=== PATIENT | male | born 2000 | race Caucasian/White ===

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

== ENCOUNTER 2020-12-30 09:28 | Inpatient (IN) ==
[2020-12-30] MEDS ORDERED: dexAMETHasone**PF** 10 MG/ML VIAL IV ONE (09:49)
[2020-12-30] MEDS ORDERED: ACETAMINOPHEN 1,000 MG/100 ML VIAL IV STA (09:49)
[2020-12-30] MEDS ORDERED: Heparin IV Adult Wt-Based Standard *NO* Bolus Protocol ONE (10:04)
--- NOTE | 2020-12-30 10:04 | Emergency Department Note ---
Impression & Plan COVID-19, Acute respiratory failure with hypoxia ED Provider Note NAME: BHANU FLORENCE AGE: 20 SEX: M : 2000 ARRIVES VIA: Walk-In INFORMANT: Patient, ED PROVIDER(S): Jet Rdz MD ROS: See above HPI for pertinent positives & negatives. A total of 10 systems reviewed and were otherwise negative. CHIEF COMPLAINT: HPI: This a 19-year-old male who presents emergency department complaining of shortness of breath. The patient reports he began having symptoms on December 18. He was subsequently diagnosed with a sinus infection and started on amoxicillin. When he did not improve he later got a Covid test. He has not been taking anything for the shortness of breath. He has not been placed on steroids the patient reports any exertion makes him short of breath. He reports rest makes this somewhat better. ROS: See above HPI for pertinent positives & negatives. A total of 10 systems reviewed and were otherwise negative. PAST MEDICAL HISTORY: See Below PAST SURGICAL HISTORY: See Below FAMILY HISTORY: See Below SOCIAL HISTORY: See Below HOME MEDICATIONS: See Below ALLERGIES: See Below VITALS: See Below PHYSICAL EXAMINATION: VITAL SIGNS - Vital signs and nursing notes were reviewed. GENERAL - 20-year-old male appearing stated age who is in moderate distress. short of breath while answering questions SKIN - Without rashes. HEAD - NC/AT. EYES - PERRL with EOMI bilaterally. Sclera anicteric. Palpebral conjunctiva pink and moist with no injection noted. EARS - No deformities of external structures noted on gross examination bilaterally. NOSE - Midline and without cyanosis. No epistaxis or purulent drainage noted. Septum midline without deviation or septal hematoma noted. MOUTH/OROPHARYNX - Without perioral cyanosis. Buccal mucosa pink and moist and without leukoplakia. Tongue midline with equal elevation of palate bilaterally. No tonsillar hypertrophy, erythema, or exudates noted. NECK - Neck with FROM. Supple to palpation. LUNGS - Chest wall symmetric without accessory muscle use, intercostals retractions, or central cyanosis. Normal vesicular breath sounds CTA B/L. No wheezes, rales, or rhonchi appreciated. CARDIAC - RRR with S1/S2. No murmur, rubs, or gallops appreciated. ABDOMEN - Abdominal contour without pulsations or visible masses. BS normoactive all four quadrants. No tenderness, palpable masses, hepatosplen omegaly, or ascites noted. EXTREMITIES - No clubbing or peripheral cyanosis. No pretibial edema present. +3/5 radial, posterior tibial, and dorsalis pedis pulses palpated throughout. +5/5 strength noted in UE/LE bilaterally. NEUROLOGIC - Cranial nerves II through XII grossly intact. Sensory intact to light touch throughout. Patellar reflexes +2/4. PSYCH - A&Ox3 and cooperates fully with examiner. Pt is very pleasant and interacts well with examiner. MEDICAL DECISION MAKING: Patient was seen and evaluated as above in room B7. Review was performed of nursing notes and vital signs. I did review pertinent previous visits and patient history. After obtaining a thorough history and physical examination the above work up was performed. This is a 20-year-old male who was diagnosed with Covid who presents to the emergency department strongly short of breath. The patient was placed on BiPAP here in the emergency department started on IV Decadron. He was given IV acetaminophen. He was typed and screened he does not have an elevation in his white blood cell count. He was started on a heparin drip until the CAT scan of his chest came back. I did discuss his case with the hospitalist service who did agree to meet the patient. An order was placed for continuous cardiac monitoring. The monitor shows a rate of 117 with Normal SInus rhythm. I attest that I have personally reviewed the patient medication list. I attest that I have reviewed the patient's blood pressure and it was found to be [] GCS: 15 The patient was evaluated during a period of high volume and high acuity during the global COVID-19 pandemic, and that diagnosis was suspected/considered upon their initial presentation. Their evaluation, treatment and testing was consistent with current guidelines for patients who present with complaints or symptoms that may be related to COVID-19. Patient was seen while provider was wearing PPE. Triage Nursing notes reviewed. Prior medical records reviewed Vital Signs: reviewed and remarkable for no significant abnormalities Differential diagnosis: Reactive airway disease, pneumonia, pneumothorax, COPD, CHF, infections, cardiac ischemia, pulmonary embolism, musculoskeletal, gastrointestinal, as well as other pathologies. ER treatment provided: See below Diagnostics interpreted by me: ECG: EKG shows sinus tachycardia QTC is 443 ventricular rate is [address] elevation or depression there is no previous EKG to compare to Laboratory studies: As stated above and show below. Imaging studies: See below Consultation(s): Internal Medicine Critical Care: I have personally spent greater than 30 minutes of critical care time in the direct management of this patient. This includes bedside care, interpretation of diagnostic studies, and testing, discussion with consultants, patient, and family members, and other required patient management activities. This 30 minutes is in excess of all separately billable procedures. Past Med/Surg History Social History Smoking Status: Never smoker Second Hand Exposure: No; Do You Dip or Chew Tobacco: No; Tobacco Cessation Education Requested by Patient: No Hx Alcohol Use: No Hx Substance Use: No Preferred Language: Croatian Communication Ability: Effective Securities Counselor Required: No Beliefs That Will Affect Care: None Current Living Situation: Parent and Family Other Information That Helps Us Care for You: No Feels Safe at Home: Yes Safety Concerns: Feels Safe At This Time Assistive Devices: Oxygen - Continuous Allergies Allergies Allergy/AdvReac Type Severity Reaction Status Date / Time No Known Allergies Allergy Mild Unverified 12/30/20 10:14 Home Meds Home Medications Medication Instructions Recorded Confirmed ephedrine sulfate 25 mg tablet 25 mg PO UD 12/30/20 12/30/20 (Bronkaid Max) pseudoephedrine HCl 60 mg tablet 60 mg PO Q6H PRN 12/30/20 12/30/20 Results & Data (ED) Vital Signs Vital Signs - 24 hr 12/30/20 09:32 Pulse Rate 117 H Respiratory Rate 28 H Blood Pressure 130/82 Blood Pressure Mean 98 Pulse Oximetry 81 L Oxygen Delivery Method Room Air Sepsis Recent Fever Within 48 Hours Yes Sepsis New/Unexplained Change in Mental Status No Sepsis Action Taken by Nursing Physician Notified Home Medications Current Medication List: was personally reviewed by me Laboratory Data Attestation: I reviewed the patient's lab results. Result diagrams: 12/31/20 05:57 12/31/20 05:57 Lab Results 12/30/20 12/30/20 12/30/20 Range/Units 10:03 10:03 10:03 WBC 12.52 H (4.8-10.8) K/uL RBC 4.98 (4.7-6.1) M/uL Hgb 14.7 (14.0-18.0) g/dL Hct 42.6 (42-52) % MCV 85.5 (80-100) fL MCH 29.5 (25-34) pg MCHC 34.5 (32-36) g/dL RDW Std Deviation 42.1 (36.4-46.3) fL RDW Coeff of Jia 13.3 (11.5-14.5) % Plt Count 271 (130-400) K/uL MPV 10.1 (7.4-10.4) fL Immature Gran % (Auto) 0.5 % Neut % (Auto) 87.3 % Lymph % (Auto) 6.9 % [place] % (Auto) 5.2 % Eos % (Auto) 0.0 % Baso % (Auto) 0.1 % Neut # (Auto) 10.94 H (1.4-6.5) K/uL Lymph # (Auto) 0.86 L (1.2-3.4) K/uL [place] # (Auto) 0.65 H (0.11-0.59) K/uL Eos # (Auto) 0.00 (0-0.5) K/uL Baso # (Auto) 0.01 (0-0.2) K/uL Immature Gran # (Auto) 0.06 H (0.00-0.02) K/uL ESR 79 H (0-15) mm/hr PT (9.0-12.0) Seconds INR (0.9-1.1) APTT (21.0-31.0) Seconds PTT Ratio D-Dimer (0-500) ug/L FEU Sodium (136-145) mmol/L Potassium (3.5-5.1) mmol/L Chloride (98-107) mmol/L Carbon Dioxide (21-32) mmol/L Anion Gap (3-11) BUN (7-18) mg/dl Creatinine (0.6-1.4) mg/dl Est Cr Clr Drug Dosing ml/min Est GFR ( Amer) ml/min Est GFR (Non-Af Amer) ml/min BUN/Creatinine Ratio (10-20) Glucose (70-99) mg/dl Lactate (0.4-2.0) mmol/L Calcium (8.5-10.1) mg/dl Magnesium (1.8-2.4) mg/dl Ferritin (8-388) ng/ml Total Bilirubin (0.2-1) mg/dl AST (15-37) U/L ALT (12-78) U/L Alkaline Phosphatase (45-117) U/L Lactate Dehydrogenase (87-241) U/L Total Creatine Kinase (39-308) U/L CK-MB (CK-2) (0.5-3.6) ng/ml CK/CKMB % Calc Troponin I (0-0.045) ng/ml C-Reactive Protein (0-0.29) mg/dl Total Protein (6.4-8.2) gm/dl Albumin (3.4-5.0) gm/dl Globulin (2.5-4.0) gm/dl Albumin/Globulin Ratio (0.9-2) Procalcitonin (0-0.5) ng/ml COVID-19 Eval Order SARS-CoV-2 (PCR) (Negative) Blood Type O Positive Antibody Screen NEGATIVE 12/30/20 12/30/20 12/30/20 Range/Units 10:03 10:03 10:03 WBC (4.8-10.8) K/uL RBC (4.7-6.1) M/uL Hgb (14.0-18.0) g/dL Hct (42-52) % MCV (80-100) fL MCH (25-34) pg MCHC (32-36) g/dL RDW Std Deviation (36.4-46.3) fL RDW Coeff of Jia (11.5-14.5) % Plt Count (130-400) K/uL MPV (7.4-10.4) fL Immature Gran % (Auto) % Neut % (Auto) % Lymph % (Auto) % [place] % (Auto) % Eos % (Auto) % Baso % (Auto) % Neut # (Auto) (1.4-6.5) K/uL Lymph # (Auto) (1.2-3.4) K/uL [place] # (Auto) (0.11-0.59) K/uL Eos # (Auto) (0-0.5) K/uL Baso # (Auto) (0-0.2) K/uL Immature Gran # (Auto) (0.00-0.02) K/uL ESR (0-15) mm/hr PT 11.7 (9.0-12.0) Seconds INR 1.2 H (0.9-1.1) APTT 24.4 (21.0-31.0) Seconds PTT Ratio 0.9 D-Dimer 1630 H* (0-500) ug/L FEU Sodium 135 L (136-145) mmol/L Potassium 3.8 (3.5-5.1) mmol/L Chloride 97 L (98-107) mmol/L Carbon Dioxide 29 (21-32) mmol/L Anion Gap 9.0 (3-11) BUN 10 (7-18) mg/dl Creatinine 0.94 (0.6-1.4) mg/dl Est Cr Clr Drug Dosing 169.5 ml/min Est GFR ( Amer) 132.9 ml/min Est GFR (Non-Af Amer) 114.6 ml/min BUN/Creatinine Ratio 10.6 (10-20) Glucose 113 H (70-99) mg/dl Lactate 1.5 (0.4-2.0) mmol/L Calcium 8.9 (8.5-10.1) mg/dl Magnesium 2.9 H (1.8-2.4) mg/dl Ferritin 2141.5 H (8-388) ng/ml Total Bilirubin 2.7 H (0.2-1) mg/dl AST 244 H (15-37) U/L ALT 390 H (12-78) U/L Alkaline Phosphatase 92 (45-117) U/L Lactate Dehydrogenase (87-241) U/L Total Creatine Kinase (39-308) U/L CK-MB (CK-2) (0.5-3.6) ng/ml CK/CKMB % Calc Troponin I (0-0.045) ng/ml C-Reactive Protein 14.10 H (0-0.29) mg/dl Total Protein 8.3 H (6.4-8.2) gm/dl Albumin 3.2 L (3.4-5.0) gm/dl Globulin 5.1 H (2.5-4.0) gm/dl Albumin/Globulin Ratio 0.6 L (0.9-2) Procalcitonin (0-0.5) ng/ml COVID-19 Eval Order SARS-CoV-2 (PCR) (Negative) Blood Type Antibody Screen 12/30/20 12/30/20 12/30/20 Range/Units 10:03 10:03 10:09 WBC (4.8-10.8) K/uL RBC (4.7-6.1) M/uL Hgb (14.0-18.0) g/dL Hct (42-52) % MCV (80-100) fL MCH (25-34) pg MCHC (32-36) g/dL RDW Std Deviation (36.4-46.3) fL RDW Coeff of Jia (11.5-14.5) % Plt Count (130-400) K/uL MPV (7.4-10.4) fL Immature Gran % (Auto) % Neut % (Auto) % Lymph % (Auto) % [place] % (Auto) % Eos % (Auto) % Baso % (Auto) % Neut # (Auto) (1.4-6.5) K/uL Lymph # (Auto) (1.2-3.4) K/uL [place] # (Auto) (0.11-0.59) K/uL Eos # (Auto) (0-0.5) K/uL Baso # (Auto) (0-0.2) K/uL Immature Gran # (Auto) (0.00-0.02) K/uL ESR (0-15) mm/hr PT (9.0-12.0) Seconds INR (0.9-1.1) APTT (21.0-31.0) Seconds PTT Ratio D-Dimer (0-500) ug/L FEU Sodium (136-145) mmol/L Potassium (3.5-5.1) mmol/L Chloride (98-107) mmol/L Carbon Dioxide (21-32) mmol/L Anion Gap (3-11) BUN (7-18) mg/dl Creatinine (0.6-1.4) mg/dl Est Cr Clr Drug Dosing ml/min Est GFR ( Amer) ml/min Est GFR (Non-Af Amer) ml/min BUN/Creatinine Ratio (10-20) Glucose (70-99) mg/dl Lactate (0.4-2.0) mmol/L Calcium (8.5-10.1) mg/dl Magnesium (1.8-2.4) mg/dl Ferritin (8-388) ng/ml Total Bilirubin (0.2-1) mg/dl AST (15-37) U/L ALT (12-78) U/L Alkaline Phosphatase (45-117) U/L Lactate Dehydrogenase 745 H (87-241) U/L Total Creatine Kinase 1373 H (39-308) U/L CK-MB (CK-2) < 1.0 (0.5-3.6) ng/ml CK/CKMB % Calc TNP Troponin I < 0.015 (0-0.045) ng/ml C-Reactive Protein (0-0.29) mg/dl Total Protein (6.4-8.2) gm/dl Albumin (3.4-5.0) gm/dl Globulin (2.5-4.0) gm/dl Albumin/Globulin Ratio (0.9-2) Procalcitonin 0.81 H (0-0.5) ng/ml COVID-19 Eval Order SARS-CoV-2 (PCR) (Negative) Blood Type Antibody Screen 12/30/20 12/30/20 Range/Units 11:00 11:00 WBC (4.8-10.8) K/uL RBC (4.7-6.1) M/uL Hgb (14.0-18.0) g/dL Hct (42-52) % MCV (80-100) fL MCH (25-34) pg MCHC (32-36) g/dL RDW Std Deviation (36.4-46.3) fL RDW Coeff of Jia (11.5-14.5) % Plt Count (130-400) K/uL MPV (7.4-10.4) fL Immature Gran % (Auto) % Neut % (Auto) % Lymph % (Auto) % [place] % (Auto) % Eos % (Auto) % Baso % (Auto) % Neut # (Auto) (1.4-6.5) K/uL Lymph # (Auto) (1.2-3.4) K/uL [place] # (Auto) (0.11-0.59) K/uL Eos # (Auto) (0-0.5) K/uL Baso # (Auto) (0-0.2) K/uL Immature Gran # (Auto) (0.00-0.02) K/uL ESR (0-15) mm/hr PT (9.0-12.0) Seconds INR (0.9-1.1) APTT (21.0-31.0) Seconds PTT Ratio D-Dimer (0-500) ug/L FEU Sodium (136-145) mmol/L Potassium (3.5-5.1) mmol/L Chloride (98-107) mmol/L Carbon Dioxide (21-32) mmol/L Anion Gap (3-11) BUN (7-18) mg/dl Creatinine (0.6-1.4) mg/dl Est Cr Clr Drug Dosing ml/min Est GFR ( Amer) ml/min Est GFR (Non-Af Amer) ml/min BUN/Creatinine Ratio (10-20) Glucose (70-99) mg/dl Lactate (0.4-2.0) mmol/L Calcium (8.5-10.1) mg/dl Magnesium (1.8-2.4) mg/dl Ferritin (8-388) ng/ml Total Bilirubin (0.2-1) mg/dl AST (15-37) U/L ALT (12-78) U/L Alkaline Phosphatase (45-117) U/L Lactate Dehydrogenase (87-241) U/L Total Creatine Kinase (39-308) U/L CK-MB (CK-2) (0.5-3.6) ng/ml CK/CKMB % Calc Troponin I (0-0.045) ng/ml C-Reactive Protein (0-0.29) mg/dl Total Protein (6.4-8.2) gm/dl Albumin (3.4-5.0) gm/dl Globulin (2.5-4.0) gm/dl Albumin/Globulin Ratio (0.9-2) Procalcitonin (0-0.5) ng/ml COVID-19 Eval Order Covid19 at [facility] SARS-CoV-2 (PCR) POSITIVE A* (Negative) Blood Type Antibody Screen Administered Medications Albuterol (Albuterol Hfa 8 Gm Inhaler) 2 puffs INH Q6R [facility] Stop: 01/29/21 18:59 Last Admin: 12/31/20 13:03 Dose: 2 puffs Documented by: [id number] Admin: 12/31/20 07:45 Dose: 2 puffs Documented by: [id number] Admin: 12/31/20 00:00 Dose: 2 puffs Documented by: [id number] Admin: 12/30/20 20:05 Dose: 2 puffs Documented by: [id number] Enoxaparin Sodium (Enoxaparin Inj 60 Mg/0.6 Ml Syr) 60 mg SQ BID ALEKSANDRA; Protocol Stop: 01/29/21 20:59 Last Admin: 12/31/20 08:47 Dose: 60 mg Documented by: [id number] Admin: 12/30/20 20:39 Dose: 60 mg Documented by: [id number] Guaifenesin (Guaifenesin 600 Mg Tabcr) 1,200 mg PO Q12 ALEKSANDRA Stop: 01/29/21 20:59 Last Admin: 12/31/20 08:50 Dose: 1,200 mg Documented by: [id number] Admin: 12/30/20 20:40 Dose: 1,200 mg Documented by: [id number] Dexamethasone 6 mg/ Syringe 1.5 mls @ 1 mls/min IV DAILY ALEKSANDRA Stop: 01/10/21 08:59 Last Admin: 12/31/20 08:47 Dose: 1 mls/min Documented by: [id number] Discontinued Medications Dexamethasone Sodium Phosphate (DexamethasonePf 10 Mg/Ml Vial) 6 mg IV NOW ONE Stop: 12/30/20 09:50 Last Admin: 12/30/20 10:24 Dose: 6 mg Documented by: [id number] Heparin Sodium/Dextrose (Heparin Iv Adult Wt-Based Standard *No* Bolus Protocol) 1 ea N/A ONE ONE; Protocol Stop: 12/30/20 10:05 Last Admin: 12/30/20 11:35 Dose: Not Given Documented by: [id number] Acetaminophen (Ofirmev) 1,000 mg in 100 mls @ 400 mls/hr IV NOW STA Stop: 12/30/20 10:03 Last Infusion: 12/30/20 10:45 Dose: 0 mls/hr Documented by: [id number] Admin: 12/30/20 10:24 Dose: 400 mls/hr Documented by: [id number] Heparin Sodium/Dextrose (Heparin Sodium/Dextrose) 25,000 units in 500 mls @ 0.02 mls/hr IV .Q24H ALEKSANDRA; Protocol Stop: 01/29/21 10:29 Last Admin: 12/30/20 11:35 Dose: Not Given Documented by: [id number] Sodium Chloride (Nss 1000ml) 1,000 mls @ 80 mls/hr IV .[id number] [facility] Stop: 12/31/20 13:22 Last Admin: 12/30/20 17:27 Dose: Not Given Documented by: [id number] Ioversol (Optiray 320 125ml) 118 ml IV ONCE ONE Stop: 12/30/20 10:11 Last Admin: 12/30/20 10:11 Dose: 118 ml Documented by: [id number] Imaging Data Radiologist's Impression: Chest CTA 12/30/20 10:05 CT ANGIOGRAM OF THE CHEST CLINICAL HISTORY: Dyspnea. COMPARISON STUDY: Chest x-ray dated 01/25/2019. TECHNIQUE: Following the IV administration of 118 cc of Optiray 320, CT angiogram of the chest was performed from the upper abdomen to the thoracic inlet utilizing the pulmonary embolus protocol. Images are reviewed in the axial, sagittal, and coronal planes. 3-D MIPS images are created and assessed. IV contrast was administered without complication. A dose lowering technique was utilized adhering to the principles of ALARA. The examination is degraded by motion artifact. There is suboptimal contrast opacification of the pulmonary arteries. CT DOSE: 803.30 mGy.cm FINDINGS: Thyroid: Imaged portions of the thyroid gland are normal in size and attenuation. Thoracic aorta: The thoracic aorta is normal in caliber and demonstrates standard 3-vessel arch anatomy. No dissection is seen. Pulmonary vasculature: The pulmonary trunk is normal in caliber. There are no filling defects identified in main, lobar, or proximal segmental pulmonary branches to suggest pulmonary embolus. Evaluation of the peripheral branches is degraded by motion artifact and lack of contrast opacification. Heart: The heart is normal in size and without pericardial effusion. Lungs and pleural spaces: Evaluation of lung parenchyma is degraded by motion artifact. Extensive multifocal airspace consolidation is seen throughout both lungs, most confluent at the lung bases. The trachea and central airways are clear. No pleural effusion is identified. Mediastinum: There is no mediastinal lymphadenopathy. [place]: Clear. Axillae: There is no axillary lymphadenopathy. Upper abdomen: There is a small hiatal hernia. The liver appears steatotic. Partially visualized upper abdominal viscera is otherwise within normal limits. Skeletal structures: No lytic or blastic bony lesions are seen. IMPRESSION: 1. There is no evidence of pulmonary embolus in the main, lobar, or proximal segmental pulmonary arteries. 2. Extensive airspace consolidation throughout both lungs is typical for multifocal pneumonia. Clinical correlation will be required and radiographic follow-up to resolution is recommended. ACT 112: Negative or not required by law. Electronically signed by: Dashawn Davila M.D. 12/30/2020 11:29 AM Discharge Plan Visit Data Chief Complaint: Shortness of Breath/Dyspnea Stated Complaint: COVID 19+,SOB ED Provider: Jet Rdz Discharge Problem: COVID-19, Acute respiratory failure with hypoxia Patient Disposition: Admitted As Inpatient Discharge Instructions Interventions: ED Discharge Assessment Last Done: 12/30/20 12:34
[2020-12-30] MEDS ORDERED: OPTIRAY 320 125ml IV ONE (10:10)
[2020-12-30 10:14] LABS: Basophils # (auto) 0.01 K/uL (0-0.2); Basophils % (auto) 0.1 %; Hematocrit (blood only) 42.6 % (42-52); Hemoglobin 14.7 g/dL (14.0-18.0); Immature Granulocytes # (auto) 0.06 K/uL (0.00-0.02); Immature Granulocytes % (auto) 0.5 %; Lymphocytes # (auto) 0.86 K/uL (1.2-3.4); Lymphocytes % (auto) 6.9 %; Mean Corpuscular Hemoglobin 29.5 pg (25-34); Mean Corpuscular Hgb Conc 34.5 g/dL (32-36); Mean Corpuscular Volume 85.5 fL (80-100); Mean Platelet Volume 10.1 fL (7.4-10.4); Monocytes # (auto) 0.65 K/uL (0.11-0.59); Monocytes % (auto) 5.2 %; Neutrophils # (auto) 10.94 K/uL (1.4-6.5); Neutrophils % (auto) 87.3 %; Platelet Count 271 K/uL (130-400); RDW Coefficient of Variation 13.3 % (11.5-14.5); RDW Standard Deviation 42.1 fL (36.4-46.3); Red Blood Count 4.98 M/uL (4.7-6.1); White Blood Count 12.52 K/uL (4.8-10.8)
[2020-12-30] MEDS ORDERED: HEPARIN SODIUM/DEXTROSE 25,000 UNITS/500 ML BAG IV SCH (10:30)
[2020-12-30 10:35] LABS: INR 1.2 (0.9-1.1); Partial Thromboplastin Ratio 0.9; Partial Thromboplastin Time 24.4 Seconds (21.0-31.0); Prothrombin Time 11.7 Seconds (9.0-12.0)
[2020-12-30 10:42] LABS: Albumin Level 3.2 gm/dl (3.4-5.0); BUN Creatinine Ratio 10.6 (10-20); C Reactive Protein 14.1 mg/dl (0-0.29); Calcium 8.9 mg/dl (8.5-10.1); Creatinine Clr Calc Pharmacy 169.5 ml/min; Est GFR (African American) 132.9 ml/min; Est GFR (Non-African American) 114.6 ml/min; Magnesium 2.9 mg/dl (1.8-2.4); Potassium 3.8 mmol/L (3.5-5.1)
[2020-12-30 10:45] LABS: Albumin Globulin Ratio 0.6 (0.9-2); Bilirubin,Total 2.7 mg/dl (0.2-1); Globulin 5.1 gm/dl (2.5-4.0); Total Protein 8.3 gm/dl (6.4-8.2)
[2020-12-30 10:51] LABS: D Dimer 1630 ug/L FEU (0-500)
--- NOTE | 2020-12-30 11:30 | CT Scan Report ---
CT ANGIOGRAM OF THE CHEST CLINICAL HISTORY: Dyspnea. COMPARISON STUDY: Chest x-ray dated 01/25/2019. TECHNIQUE: Following the IV administration of 118 cc of Optiray 320, CT angiogram of the chest was pe rformed from the upper abdomen to the thoracic inlet utilizing the pulmonary embolus protocol. Images are reviewed in the axial, sagittal, and coronal planes. 3-D MIPS images are created and assessed. I V contrast was administered without complication. A dose lowering technique was utilized adhering to the principles of ALARA. The examination is degraded by motion artifact. There is suboptimal contras t opacification of the pulmonary arteries. CT DOSE: 803.30 mGy.cm FINDINGS: Thyroid: Imaged portions of the thyroid gland are normal in size and attenuation. Thoracic aorta: The thoracic aorta is normal in caliber and demonstrates standard 3-vessel arch anato my. No dissection is seen. Pulmonary vasculature: The pulmonary trunk is normal in caliber. There are no filling defects identif ied in main, lobar, or proximal segmental pulmonary branches to suggest pulmonary embolus. Evaluation of the peripheral branches is degraded by motion artifact and lack of contrast opacification. Heart: The heart is normal in size and without pericardial effusion. Lungs and pleural spaces: Evaluation of lung parenchyma is degraded by motion artifact. Extensive mul tifocal airspace consolidation is seen throughout both lungs, most confluent at the lung bases. The t rachea and central airways are clear. No pleural effusion is identified. Mediastinum: There is no mediastinal lymphadenopathy. [place]: Clear. Axillae: There is no axillary lymphadenopathy. Upper abdomen: There is a small hiatal hernia. The liver appears steatotic. Partially visualized uppe r abdominal viscera is otherwise within normal limits. Skeletal structures: No lytic or blastic bony lesions are seen. IMPRESSION: 1. There is no evidence of pulmonary embolus in the main, lobar, or proximal segmental pulmonary ebony litzy. 2. Extensive airspace consolidation throughout both lungs is typical for multifocal pneumonia. Clinic al correlation will be required and radiographic follow-up to resolution is recommended. ACT 112: Negative or not required by law. Electronically signed by: Dashawn Davila M.D. 12/30/2020 11:29 AM
--- NOTE | 2020-12-30 11:33 | History & Physical Report ---
Date of Service December 30, 2020 Assessment & Plan (1) COVID-19: Plan: Please refer to attending addendum as I did not see the patient in person due to being COVID-19 positive. - COVID-19 positive since 12/18 - Procalcitonin pending, ddimer of 1630, ESR 79, LDH 745 - Lymphocytes 0.86, neutrophils 10.94 - CTA completed showing Extensive airspace consolidation throughout both lungs is typical for multifocal pneumonia. Negative for PE. - O2 sats 81% on RA, improved to 90s now on bipap - WBC 12.52 - Cont decadron 6 mg IV daily - Remdesivir not given due to being past 10days of symptoms( today day #12). Pt does not meet criteria for convalescent plasma as AST and ALT are 6x the normal limit and the cut off is 5x, also no more doses available in the hospital currently. -Continue albuterol inhaler treatment, supportive care - proning every 1-2 hrs x 30 minutes or more as patient can tolerate it. (2) Acute respiratory failure with hypoxia: Plan: -Hypoxic at 81% on room air, 89% on 5 L via NC, then placed on BiPAP, continue BiPAP -As above (3) Tachycardia: Plan: -Secondary to COVID-19 infectious process as above, CTA is negative for PE, heparin was ordered in the ER however was never started, awaiting troponins, pending those results will either maintain or discontinue heparin order. -Trending troponins -EKG reviewed showing sinus tach but no ST wave inversions or signs of ischemia (4) Elevated transaminase level: Plan: -Follow a.m. LFTs to ensure improvement -AST 244, ALT 390 on admission (5) Hyponatremia: Plan: -135 on admission, NSS at 80 ml/hr for now for maintenance and to improve this. Monitor with am labs (6) Morbid obesity: Plan: -BMI of 37.9, diet and exercise to be encouraged throughout the hospital stay and on discharge DVT PPx: - teds, heparin subcu CODE: Full code Dispo: From home, likely to remain in the hospital x 2 days History of Present Illness Primary Care Provider: NO PCP This is a 20-year-old male without past medical history except for one time having pneumonia about 5 years ago, who presents to the ER with worsening shortness of breath. Lives at home with parents, parents both with symptoms. Reports his mother got vaccinated, father had one injection and scheduled for a second dose but has not yet received. 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 Admits to traveling to [place] recently with friend and girlfriend for an indoor wedding on the , where the bride tested on the . He presented to an urgent care clinic on 12/17 due to sinus congestion, cough, fever, chills, fatigue and was given amoxicillin course for sinus infection, and was tested for Covid there, and his results were positive for COVID-19 on 12/18. He is currently 12 days out from having symptoms. Today he presented to the ER and was 81% on room air, on 5 L was at 89% O2 sats, and is now on BiPAP. He feels his breathing is improved on BiPAP. Patient received Decadron, and CT of the chest is pending. Allergies Allergy/AdvReac Type Severity Reaction Status Date / Time No Known Allergies Allergy Mild Unverified 12/30/20 10:14 Home Medications Medication Instructions Recorded Confirmed Type ephedrine sulfate 25 mg tablet 25 mg PO UD 12/30/20 12/30/20 History (Bronkaid Max) pseudoephedrine HCl 60 mg tablet 60 mg PO Q6H PRN 12/30/20 12/30/20 History Past Med/Surg History Social History Smoking Status: Never smoker Second Hand Exposure: No; Do You Dip or Chew Tobacco: No; Tobacco Cessation Education Requested by Patient: No Hx Alcohol Use: No Hx Substance Use: No Preferred Language: Mongolian Communication Ability: Effective Shearer Screen Measurer And Trimmer Required: No Beliefs That Will Affect Care: None Current Living Situation: Parent and Family Other Information That Helps Us Care for You: No Feels Safe at Home: Yes Safety Concerns: Feels Safe At This Time Assistive Devices: None Review of Systems Review of Systems: Constitutional: + fever, sweats and chills Eyes: No diplopia, no worsening or blurred vision ENT: normal hearing, no trouble swallowing Respiratory: + cough dry, + dyspnea at rest or on exertion Cardiovascular: No chest pain, tightness or palpitations Abdomen: No pain, nausea, vomiting, diarrhea or constipation Musculoskeletal: No joint pain, calf pain, swelling Neurologic: + generalized weakness, no numbness/tingling, or balance problems Psychiatric: No anxiety or depression Skin: No rash or itch Physical Exam Physical Exam: Please refer to attending addendum as I did not see the patient in person due to being COVID-19 positive. Results & Data Results & Data ([facility]) Vital Signs (Past 12 Hours) Vital Signs Pulse Resp BP Pulse Ox 12/30/20 10:30 107 H 28 H 114/79 95 12/30/20 10:18 108 H 30 H 95 12/30/20 10:00 115 H 32 H 138/88 90 12/30/20 09:57 115 H 32 H 89 L 12/30/20 09:32 117 H 28 H 130/82 81 L Diagnostic Findings Chest CTA 12/30/20 10:05 CT ANGIOGRAM OF THE CHEST CLINICAL HISTORY: Dyspnea. COMPARISON STUDY: Chest x-ray dated 01/25/2019. TECHNIQUE: Following the IV administration of 118 cc of Optiray 320, CT angiogram of the chest was performed from the upper abdomen to the thoracic inlet utilizing the pulmonary embolus protocol. Images are reviewed in the axial, sagittal, and coronal planes. 3-D MIPS images are created and assessed. IV contrast was administered without complication. A dose lowering technique was utilized adhering to the principles of ALARA. The examination is degraded by motion artifact. There is suboptimal contrast opacification of the pulmonary arteries. CT DOSE: 803.30 mGy.cm FINDINGS: Thyroid: Imaged portions of the thyroid gland are normal in size and attenuation. Thoracic aorta: The thoracic aorta is normal in caliber and demonstrates standard 3-vessel arch anatomy. No dissection is seen. Pulmonary vasculature: The pulmonary trunk is normal in caliber. There are no fi lling defects identified in main, lobar, or proximal segmental pulmonary branches to suggest pulmonary embolus. Evaluation of the peripheral branches is degraded by motion artifact and lack of contrast opacification. Heart: The heart is normal in size and without pericardial effusion. Lungs and pleural spaces: Evaluation of lung parenchyma is degraded by motion artifact. Extensive multifocal airspace consolidation is seen throughout both lungs, most confluent at the lung bases. The trachea and central airways are clear. No pleural effusion is identified. Mediastinum: There is no mediastinal lymphadenopathy. Ariadne: Clear. Axillae: There is no axillary lymphadenopathy. Upper abdomen: There is a small hiatal hernia. The liver appears steatotic. Partially visualized upper abdominal viscera is otherwise within normal limits. Skeletal structures: No lytic or blastic bony lesions are seen. IMPRESSION: 1. There is no evidence of pulmonary embolus in the main, lobar, or proximal segmental pulmonary arteries. 2. Extensive airspace consolidation throughout both lungs is typical for multifocal pneumonia. Clinical correlation will be required and radiographic follow-up to resolution is recommended. ACT 112: Negative or not required by law. Electronically signed by: Dashawn Davila M.D. 12/30/2020 11:29 AM ECG Additional Comments: 30-DEC-2020 09:53:10 [facility]-EDSTAT ROUTINE RETRIEVAL Sinus tachycardia Otherwise normal ECG No previous ECGs available 25mm/s 10mm/mV 150Hz 9.0.9 12SL 241 SASHA: 11 Unconfirmed Vent. rate 110 BPM ME interval 132 ms QRS duration 94 ms QT/QTc 328/443 ms Code Status & VTE Plan Code Status Full code- discussed with the patient Supervising Physician Co-Signing Physician Notes 12/30/2020 The patient was seen and examined in telemetry unit He was diagnosed with COVID-19 infection on of this month and is admitted with increasing shortness of breath and bilateral extensive infiltration in the x-ray Has been feeling much better in the room in prone position Denies any significant pain and/or other symptoms except shortness of breath On examination Lying in bed in prone position Not in any acute distress Obese and remains hemodynamically stable Chest-decreased breath sounds both sides with occasional crackles Heart-S1-S2, regular Abdomen-benign Extremities-trace edema bilaterally His admission labs, EKG and imaging studies reviewed Has extensive bilateral multifocal pneumonia without any evidence of pulmonary embolism with positive for COVID-19 on of this month and today Has significant abnormalities in transaminases Does not qualify for remdesivir and/or Tocilizumab We will continue with current oxygen and dexamethasone we will try to keep 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
[2020-12-30 11:38] LABS: Creatine Kinase MB < 1.0 ng/ml (0.5-3.6); Troponin I < 0.015 ng/ml (0-0.045)
[2020-12-30 12:46] LABS: Appearance Urine Clear (Clear); Bacteria Urine Automated Negative (Negative); Blood Urine 1+ (Negative); Cast Urine Automated 0 /lpf (0-5); Color Urine Dark Yellow; Epithelial Cell Urine Auto 0-5 /lpf (0-5); Glucose Urine UA Negative (Negative); Ketones Urine Negative (Negative); Leukocyte Esterase Urine Negative (Negative); Nitrite Urine Negative (Negative); Protein Urine 1+ (Negative); Specific Gravity Urine 1.024 (1.000-1.030); Urobilinogen Urine Negative (Negative); pH Urine 6.5 (4.5-7.5)
[2020-12-30 12:52] LABS: Bilirubin Urine 1+ (Negative)
[2020-12-30] MEDS ORDERED: ENOXAPARIN 0.5 MG/KG SQ SCH (13:23)
[2020-12-30] MEDS ORDERED: SODIUM CHLORIDE 0.9% 1000ML 1,000 ML IV SCH (13:23)
[2020-12-30] MEDS ORDERED: ONDANSETRON INJ 2 MG/ML 2 ML VIAL IV PRN (13:23)
[2020-12-30] MEDS ORDERED: ACETAMINOPHEN 325 MG TAB PO PRN (13:23)
[2020-12-30 14:16] LABS: Ferritin 2141.5 ng/ml (8-388)
[2020-12-30 14:17] LABS: Creatine Kinase 1373 U/L (39-308)
--- NOTE | 2020-12-30 16:35 | Pulmonary Consultation ---
Date of Consultation December 30, 2020 Assessment & Plan (1) Acute respiratory failure with hypoxia: (2) COVID-19: (3) Elevated transaminase level: 20-year-old male significant past medical history aside from obesity presenting to the hospital due to acute hypoxia secondary to COVID-19 viral pneumonia. Acute hypoxia from COVID-19 viral pneumonia: Continue Decadron therapy per protocol. Remdesivir likely not beneficial given that he is more than a week out from symptom onset. His inflammatory markers are very elevated. His LFTs are elevated as well. He is a candidate for tocilizumab therapy, but the transaminitis is a relative contraindication at this time. We will recheck LFTs tomorrow and if they demonstrate improvement, we can consider administering tocilizumab. I have discontinued the IV fluids. Recommend keeping him on the continuous conveyor screen drier side given his ARDS-like picture. Agree with self proning as much as possible. We will supply him with an incentive spirometer and flutter valve to promote pulmonary toilet. Thank you for the consultation. We will continue to follow along with you. History of Present Illness Reason for Consultation: Acute hypoxia secondary to Covid viral pneumonia Attending Physician: Apoorva Brewer MD History of Present Illness 20-year-old male with a past medical history of obesity and allergic rhinitis presenting to the hospital due to increasing shortness of breath for the past 2 to 3 days. He started developing Covid symptoms last Thursday. He attended a wedding where he was exposed to COVID-19. He is not vaccinated. He notes he was having nausea and vomiting midweek. He went to an urgent care and was diagnosed with sinusitis. He then returned to the urgent care and was found to have COVID-19 infection. He ultimately came here to the hospital due to increasing shortness of breath. He denies any history of asthma or respiratory disease. 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 Denies tobacco abuse. Chest CTA completed today did not demonstrate evidence of pulmonary emboli. Extensive groundglass and consolidation was noted bilaterally. He was on BiPAP in the emergency department. He is currently on 11 L of oxygen via oxygen mask. He is self proning. Allergies Allergy/AdvReac Type Severity Reaction Status Date / Time No Known Allergies Allergy Mild Unverified 12/30/20 10:14 Home Medications Medication Instructions Recorded Confirmed Type ephedrine sulfate 25 mg tablet 25 mg PO UD 12/30/20 12/30/20 History (Bronkaid Max) pseudoephedrine HCl 60 mg tablet 60 mg PO Q6H PRN 12/30/20 12/30/20 History Patient History Social History Smoking Status: Never smoker Second Hand Exposure: No; Do You Dip or Chew Tobacco: No; Tobacco Cessation Education Requested by Patient: No Hx Alcohol Use: No Hx Substance Use: No Preferred Language: Kazakh Communication Ability: Effective Fig Washer Required: No Beliefs That Will Affect Care: None Current Living Situation: Parent and Family Other Information That Helps Us Care for You: No Feels Safe at Home: Yes Safety Concerns: Feels Safe At This Time Assistive Devices: None Review of Systems Review of Systems: 02/21 point ROS negative unless noted elsewhere Physical Exam Physical Exam: Constitutional: Patient appears to be of their stated age. Patient is in no apparent distress. Patient is well-developed. Eyes: Pupils are equal round and reactive to light. Conjunctivae are normal. Anicteric sclera. Ears nose, mouth and throat: No obvious deformities. Neck: Trachea is midline. Visual inspection is normal. Respiratory: Mild tachypnea. Diminished lung sounds bilaterally. No significant clubbing noted. Cardiovascular: Regular rate and rhythm. No murmurs. No edema. Gastrointestinal: Normal bowel sounds, soft, nontender and nondistended. No hepatosplenomegaly noted. Musculoskeletal: No cyanosis. Patient is able to move all extremities. Strength is 5 out of 5 in the upper and lower extremities. Skin: No rashes, warm dry and intact. Neurologic: No obvious focal neurological deficits seen. Psychiatric: Alert and oriented x3 with a euthymic affect. Results & Data Results & Data ([facility]) Vital Signs (Past 12 Hours) Vital Signs Temp Pulse Pulse Resp BP BP Pulse Ox 12/30/20 15:54 89 20 145/95 H 90 12/30/20 13:23 99.0 F 103 H 98 H 33 H 160/93 H 93 12/30/20 12:00 85 29 H 142/89 H 95 12/30/20 11:30 95 H 27 H 122/85 96 12/30/20 11:00 101 H 30 H 129/83 96 12/30/20 10:30 107 H 28 H 114/79 95 12/30/20 10:18 108 H 30 H 95 12/30/20 10:00 115 H 32 H 138/88 90 12/30/20 09:57 115 H 32 H 89 L 12/30/20 09:32 117 H 28 H 130/82 81 L Pulse Ox 12/30/20 15:54 12/30/20 13:23 93 12/30/20 12:00 12/30/20 11:30 12/30/20 11:00 12/30/20 10:30 12/30/20 10:18 12/30/20 10:00 12/30/20 09:57 12/30/20 09:32 vital signs, labs and imaging personally reviewed PG Care Time/CCT Total # of Minutes Spent Total Time Spent with Patient: Total time spent is greater than 50% in coordination of care (as documented) at patient's floor/unit and/or counseling patient: Coding Level of Care Code 41289 Inpt Consult Level 4 Diagnoses Acute respiratory failure with hypoxia J96.01 COVID-19 U07.1 Elevated transaminase level R74.01
[2020-12-30] MEDS: ALBUTEROL HFA 8 GM INHALER INH SCH (20:05)
[2020-12-30] MEDS: ENOXAPARIN INJ 60 MG/0.6 ML SYR SQ SCH (20:39)
[2020-12-30] MEDS: guaiFENesin 600 MG TABCR PO SCH (20:40)
[2020-12-31 06:20] LABS: Hematocrit (blood only) 39.3 % (42-52); Hemoglobin 13.3 g/dL (14.0-18.0); Mean Corpuscular Hemoglobin 28.8 pg (25-34); Mean Corpuscular Hgb Conc 33.8 g/dL (32-36); Mean Corpuscular Volume 85.1 fL (80-100); Mean Platelet Volume 10.1 fL (7.4-10.4); Platelet Count 270 K/uL (130-400); RDW Coefficient of Variation 13.4 % (11.5-14.5); RDW Standard Deviation 41.3 fL (36.4-46.3); Red Blood Count 4.62 M/uL (4.7-6.1); White Blood Count 8.65 K/uL (4.8-10.8)
[2020-12-31 07:01] LABS: Alanine Aminotransferase 303 U/L (12-78); Albumin Level 2.8 gm/dl (3.4-5.0); Aspartate Aminotransferase 119 U/L (15-37); BUN Creatinine Ratio 20.7 (10-20); Blood Urea Nitrogen 14 mg/dl (7-18); C Reactive Protein 9.36 mg/dl (0-0.29); Calcium 8.9 mg/dl (8.5-10.1); Carbon Dioxide 28 mmol/L (21-32); Chloride 102 mmol/L (98-107); Creatinine Clr Calc Pharmacy 240.8 ml/min; Est GFR (African American) > 150.0 ml/min; Est GFR (Non-African American) 137.2 ml/min; Glucose 116 mg/dl (70-99); Magnesium 2.8 mg/dl (1.8-2.4); Sodium 138 mmol/L (136-145)
[2020-12-31 07:08] LABS: Albumin Globulin Ratio 0.6 (0.9-2); Alkaline Phosphatase 79 U/L (45-117); Bilirubin,Total 1.6 mg/dl (0.2-1); Globulin 4.4 gm/dl (2.5-4.0); Phosphorus 4.4 mg/dl (2.5-4.9); Total Protein 7.2 gm/dl (6.4-8.2)
[2020-12-31] MEDS: ALBUTEROL HFA 8 GM INHALER INH SCH ×4 (07:45→19:20)
[2020-12-31] MEDS: ENOXAPARIN INJ 60 MG/0.6 ML SYR SQ SCH ×2 (08:47→20:55)
[2020-12-31] MEDS: guaiFENesin 600 MG TABCR PO SCH ×2 (08:50→20:55)
[2020-12-31] MEDS ORDERED: dexAMETHasone 6 MG in SYRINGE 0 ML IV SCH (09:00)
--- NOTE | 2020-12-31 09:16 | Pulmonology Progress Note ---
Date of Service December 31, 2020 Assessment & Plan (1) Acute respiratory failure with hypoxia: (2) COVID-19: (3) Elevated transaminase level: Plan: 20-year-old male significant past medical history aside from obesity presenting to the hospital due to acute hypoxia secondary to COVID-[address] chest 12/30/2020 personally reviewed: Diffuse patchy bilateral alveolar opacities appreciated bilaterally No mediastinal lymphadenopathy --Acute hypoxic respiratory failure Secondary to multilobar COVID-19 pneumonia COVID-19 PCR positive 12/28/2020 CRP 14.1--> 9.36 Procalcitonin 0.81 Continue with O2 supplementation to keep oxygen saturation between 90-92%. Awake proning will be helpful Continue with incentive spirometry Continue with flutter valve. Recommend patient to be kept euvolemic to negative balance --Transaminitis Trending down Continue to monitor Plan: In/out: -1.4 L since coming to the hospital Start incentive spirometry for the patient. Guaifenesin added to the regimen Trial of BiPAP nightly and as needed shortness of breath I will increase the patient's dexamethasone to 10 mg to be used on a daily basis Extra 4 mg to be given today Patient LFTs are trending down If the patient CRP is elevated tomorrow and his LFTs are trending down then we can consider giving him Tocilizumab depending on availability with our hospital as there has been shortage all throughout the [place] from the surgical COVID-[address] Brewer Please note the above document was generated using voice recognition software. It may contain grammatical, syntax or spelling errors.Any formal questions or concerns about the content, text or information contained within the body of this dictation should be directly addressed to the provider for clarification. Admission and Anticipated Discharge Date Admission Date: December 30, 2020 Subjective Patient seen and examined at bedside. No acute distress, no adverse events overnight. Patient was on 15 L nasal cannula saturating 90% He was not in any acute respiratory distress. Was talking in full sentences Fair appetite. Complains of cough not bringing any phlegm up. He has been using flutter valve Incentive spirometry ordered for the patient Review of Systems Review of Systems: All systems reviewed & are unremarkable except as noted in Subjective Physical Exam Physical Exam: Constitutional: No acute distress HEENT: EOMI, PERRLA Respiratory system: Decreased air entry bilaterally, no wheeze, rhonchi, positive crackles bilateral lower lobes CVS: S1-S2 positive, no murmurs or gallops Abdomen: Soft, nontender, nondistended, positive bowel sounds x4 Extremities: +2 pulses bilaterally radialis/ dorsalis pedis, no cyanosis, no edema Neuro: Awake alert oriented x3 Psych: Normal mood and affect G/U: No Berman Skin: no rashes, warm and dry Lymphatic: no cervical or axillary lymphadenopathy Results & Data Results & Data ([facility]) Vital Signs (Past 12 Hours) Vital Signs Temp Pulse Pulse Resp BP Pulse Ox 12/31/20 07:49 36.6 C 82 20 129/76 92 12/31/20 07:46 83 18 92 12/31/20 06:27 91 12/31/20 03:52 36.7 C 86 24 109/57 L 93 12/30/20 23:59 90 24 95 12/30/20 23:51 80 12/30/20 23:45 37.1 C 72 18 116/73 96 12/31/20 05:57 12/31/20 05:57 PG Care Time/CCT Total # of Minutes Spent Total Time Spent with Patient: Total time spent is greater than 50% in coordination of care (as documented) at patient's floor/unit and/or counseling patient: Coding Level of Care Code 86742 Subseq Hosp Care Lvl 3 Diagnoses Acute respiratory failure with hypoxia J96.01 COVID-19 U07.1 Elevated transaminase level R74.01
[2020-12-31 09:32] LABS: Appearance Urine Clear (Clear); Bacteria Urine Automated Negative (Negative); Blood Urine Trace (Negative); Color Urine Dark Yellow; Epithelial Cell Urine Auto 0-5 /lpf (0-5); Glucose Urine UA Negative (Negative); Ketones Urine Negative (Negative); Leukocyte Esterase Urine Negative (Negative); Nitrite Urine Negative (Negative); Protein Urine 1+ (Negative); RBC Urine Automated 0-4 /hpf (0-4); Specific Gravity Urine 1.025 (1.000-1.030); Urobilinogen Urine Negative (Negative); pH Urine 5.5 (4.5-7.5)
[2020-12-31 09:35] LABS: Bilirubin Urine 1+ (Negative)
--- NOTE | 2020-12-31 16:11 | Hospitalist Progress Note ---
Date of Service December 31, 2020 Assessment & Plan (1) COVID-19: Plan: Please refer to attending addendum as I did not see the patient in person due to being COVID-19 positive. - COVID-19 positive since 12/18 - Procalcitonin pending, ddimer of 1630, ESR 79, LDH 745 - Lymphocytes 0.86, neutrophils 10.94 - CTA completed showing Extensive airspace consolidation throughout both lungs is typical for multifocal pneumonia. Negative for PE. - O2 sats 81% on RA, improved to 90s now on bipap - WBC 12.52 - Cont decadron 6 mg IV daily - Remdesivir not given due to being past 10days of symptoms( today day #12). Pt does not meet criteria for convalescent plasma as AST and ALT are 6x the normal limit and the cut off is 5x, also no more doses available in the hospital currently. -Continue albuterol inhaler treatment, supportive care - proning every 1-2 hrs x 30 minutes or more as patient can tolerate it. -Clinically better still requiring about 13 L of oxygen via mask to maintain saturation -Ongoing cough -CRP is down to 9.36 from 14.0-not a candidate for Tocilizumab (2) Acute respiratory failure with hypoxia: Plan: -Hypoxic at 81% on room air, 89% on 5 L via NC, then placed on BiPAP, continue BiPAP -As above (3) Tachycardia: Plan: -Secondary to COVID-19 infectious process as above, CTA is negative for PE, heparin was ordered in the ER however was never started, awaiting troponins, pending those results will either maintain or discontinue heparin order. -Trending troponins -EKG reviewed showing sinus tach but no ST wave inversions or signs of ischemia -No more tachycardia (4) Elevated transaminase level: Plan: -Follow a.m. LFTs to ensure improvement -AST 244, ALT 390 on admission -Significantly better today. recheck tomorrow (5) Hyponatremia: Plan: -135 on admission, NSS at 80 ml/hr for now for maintenance and to improve this. Monitor with am labs (6) Morbid obesity: Plan: -BMI of 37.9, diet and exercise to be encouraged throughout the hospital stay and on discharge DVT PPx: - teds, heparin subcu CODE: Full code Dispo: From home, likely to remain in the hospital x 2 days Admission and Anticipated Discharge Date Admission Date: December 30, 2020 Subjective 12/31/2020 The patient was seen and examined in telemetry unit and in the Covid room He has been feeling much better and communicating normally without any shortness of breath Still requiring 13 L of oxygen to maintain saturation and complains of cough Review of Systems Review of Systems: All systems reviewed and are unremarkable except as noted below Respiratory: Cough with shortness of breath on exertion Physical Exam Physical Exam: Sitting at the side of the bed without any significant distress Constitutional: well developed, well nourished, + ill appearing and + obese Eyes: PERRL, conjunctivae normal, anicteric sclerae ENMT: external ear and nose normal, oropharynx normal Neck: trachea midline, no thyromegaly Respiratory: + respiratory distress and + cough Auscultation: + diminished lung sounds, + crackles (At the bases) and + wheezes Cardiovascular: Rate/Rhythm: regular rate and regular rhythm; not tachycardic Heart Sounds: normal S1 and normal S2; no murmur Gastrointestinal (Abdomen): Inspection/Auscultation: + abdomen distended and normal bowel sounds Percussion/Palpation: abdomen soft; abdomen nontender Musculoskeletal: No acute arthritis in any joint Neurologic: Alert, awake and oriented x3. Generally weak, no focal sensory no motor deficit appreciated Lymphatic: no cervical or axillary lymphadenopathy Results & Data Results & Data ([facility]) Vital Signs (Past 12 Hours) Vital Signs Temp Pulse Pulse Resp BP Pulse Ox 12/31/20 14:54 36.6 C 73 20 135/78 93 12/31/20 14:00 88 L 12/31/20 13:04 83 18 92 12/31/20 11:43 37.0 C 75 20 120/80 93 12/31/20 11:29 68 18 91 12/31/20 07:49 36.6 C 82 20 129/76 92 12/31/20 07:46 83 18 92 12/31/20 07:00 82 12/31/20 06:27 91 Laboratory Results Short CBC 12/31/20 Range/Units 05:57 WBC 8.65 (4.8-10.8) K/uL Hgb 13.3 L (14.0-18.0) g/dL Hct 39.3 L (42-52) % Plt Count 270 (130-400) K/uL BMP 12/31/20 05:57 Sodium 138 Potassium 4.0 Chloride 102 Carbon Dioxide 28 BUN 14 Creatinine 0.66 Glucose 116 H Calcium 8.9 Cardiac Enzymes 12/30/20 Range/Units 20:20 Troponin I < 0.015 (0-0.045) ng/ml Liver Function 12/31/20 Range/Units 05:57 Total Bilirubin 1.6 H (0.2-1) mg/dl Direct Bilirubin 1.0 H (0-0.2) mg/dl AST 119 H (15-37) U/L ALT 303 H (12-78) U/L Alkaline Phosphatase 79 (45-117) U/L Albumin 2.8 L (3.4-5.0) gm/dl Urine 12/31/20 Range/Units Unknown Urine Color Dark Yellow Urine Appearance Clear (Clear) Urine pH 5.5 (4.5-7.5) Ur Specific [place] 1.025 (1.000-1.030) Urine Protein 1+ H (Negative) Urine Glucose (UA) Negative (Negative) Medications Administered Current Inpatient Medications Acetaminophen (Acetaminophen 325 Mg Tab) 650 mg PO Q4H PRN PRN Reason: Moderate Pain Stop: 01/29/21 13:22 Albuterol (Albuterol Hfa 8 Gm Inhaler) 2 puffs INH Q6R [facility] Stop: 01/29/21 18:59 Last Admin: 12/31/20 13:03 Dose: 2 puffs Documented by: Enoxaparin Sodium (Enoxaparin Inj 60 Mg/0.6 Ml Syr) 60 mg SQ BID [facility]; Protocol Stop: 01/29/21 20:59 Last Admin: 12/31/20 08:47 Dose: 60 mg Documented by: Guaifenesin (Guaifenesin 600 Mg Tabcr) 1,200 mg PO Q12 [facility] Stop: 01/29/21 20:59 Last Admin: 12/31/20 08:50 Dose: 1,200 mg Documented by: Dexamethasone 6 mg/ Syringe 1.5 mls @ 1 mls/min IV DAILY [facility] Stop: 01/10/21 08:59 Last Admin: 12/31/20 08:47 Dose: 1 mls/min Documented by: Ondansetron HCl (Ondansetron Inj 2 Mg/Ml 2 Ml Vial) 4 mg IV Q4H PRN PRN Reason: Nausea And Vomiting Stop: 01/29/21 13:22
[2020-12-31] MEDS ORDERED: dexAMETHasone 4 MG in SYRINGE 0 ML IV ONE (20:00)
[2020-12-31] MEDS ORDERED: guaiFENesin 600 MG TABCR PO SCH (21:00)
[2021-01-01] MEDS: ALBUTEROL HFA 8 GM INHALER INH SCH ×4 (00:25→19:07)
[2021-01-01 07:22] LABS: Basophils # (auto) 0.01 K/uL (0-0.2); Basophils % (auto) 0.1 %; Eosinophils # (auto) 0.01 K/uL (0-0.5); Eosinophils % (auto) 0.1 %; Hematocrit (blood only) 40.2 % (42-52); Hemoglobin 13.6 g/dL (14.0-18.0); Immature Granulocytes # (auto) 0.09 K/uL (0.00-0.02); Immature Granulocytes % (auto) 0.8 %; Lymphocytes # (auto) 1.34 K/uL (1.2-3.4); Lymphocytes % (auto) 12.2 %; Mean Corpuscular Hgb Conc 33.8 g/dL (32-36); Mean Corpuscular Volume 85.7 fL (80-100); Mean Platelet Volume 10.4 fL (7.4-10.4); Monocytes # (auto) 0.78 K/uL (0.11-0.59); Monocytes % (auto) 7.1 %; Neutrophils # (auto) 8.75 K/uL (1.4-6.5); Neutrophils % (auto) 79.7 %; Platelet Count 330 K/uL (130-400); RDW Coefficient of Variation 13.2 % (11.5-14.5); RDW Standard Deviation 41.5 fL (36.4-46.3); Red Blood Count 4.69 M/uL (4.7-6.1); White Blood Count 10.98 K/uL (4.8-10.8)
[2021-01-01 07:48] LABS: Albumin Level 2.8 gm/dl (3.4-5.0); BUN Creatinine Ratio 18.7 (10-20); Calcium 8.8 mg/dl (8.5-10.1); Creatinine Clr Calc Pharmacy 203.7 ml/min; Est GFR (African American) 148.5 ml/min; Est GFR (Non-African American) 128.1 ml/min; Magnesium 2.4 mg/dl (1.8-2.4); Potassium 4.1 mmol/L (3.5-5.1)
[2021-01-01 07:50] LABS: Albumin Globulin Ratio 0.7 (0.9-2); Bilirubin,Total 1.1 mg/dl (0.2-1); Globulin 4.3 gm/dl (2.5-4.0); Phosphorus 4.4 mg/dl (2.5-4.9); Total Protein 7.1 gm/dl (6.4-8.2)
[2021-01-01] MEDS: ENOXAPARIN INJ 60 MG/0.6 ML SYR SQ SCH ×2 (08:55→19:41)
[2021-01-01] MEDS: dexAMETHasone 10 MG in SYRINGE 0 ML IV SCH (08:55)
[2021-01-01] MEDS: guaiFENesin 600 MG TABCR PO SCH ×2 (08:55→19:41)
--- NOTE | 2021-01-01 14:08 | Pulmonology Progress Note ---
Date of Service January 01, 2021 Assessment & Plan (1) Acute respiratory failure with hypoxia: (2) COVID-19: (3) Elevated transaminase level: Plan: 20-year-old male significant past medical history aside from obesity presenting to the hospital due to acute hypoxia secondary to COVID-[address] chest 12/30/2020 personally reviewed: Diffuse patchy bilateral alveolar opacities appreciated bilaterally No mediastinal lymphadenopathy --Acute hypoxic respiratory failure Secondary to multilobar COVID-19 pneumonia COVID-19 PCR positive 12/28/2020 CRP 14.1--> 9.36 Procalcitonin 0.81 Continue with O2 supplementation to keep oxygen saturation between 90-92%. Awake proning will be helpful Continue with incentive spirometry Continue with flutter valve. Recommend patient to be kept euvolemic to negative balance --Transaminitis Trending down Continue to monitor Plan: In/out: -2 L, urine output 3350 Keep the patient negative balance. Continue with dexamethasone 10 mg Unfortunately hospital does not have Tocilizumab. Patient clinically seems to be on the right track. Please note the above document was generated using voice recognition software. It may contain grammatical, syntax or spelling errors.Any formal questions or concerns about the content, text or information contained within the body of this dictation should be directly addressed to the provider for clarification. Admission and Anticipated Discharge Date Admission Date: December 30, 2020 Subjective Patient seen and examined at bedside. No acute distress, no adverse events overnight. Patient did try BiPAP at night but he did not like it said it was too much pressure. States that he is feeling the same. He is using incentive spirometry but going only up to 500. Encouraged to walk at least 1500 Has been using flutter valve not bringing up any phlegm. No hemoptysis. Fair appetite. Patient was saturating 93% on 15 L went down to 12 L Review of Systems Review of Systems: All systems reviewed & are unremarkable except as noted in Subjective Physical Exam Physical Exam: Constitutional: No acute distress HEENT: EOMI, PERRLA Respiratory system: Decreased air entry bilaterally, no wheeze, rhonchi, positive crackles bilateral lower lobes CVS: S1-S2 positive, no murmurs or gallops Abdomen: Soft, nontender, nondistended, positive bowel sounds x4 Extremities: +2 pulses bilaterally radialis/ dorsalis pedis, no cyanosis, no edema Neuro: Awake alert oriented x3 Psych: Normal mood and affect G/U: No Berman Skin: no rashes, warm and dry Lymphatic: no cervical or axillary lymphadenopathy Results & Data Results & Data ([facility]) Vital Signs (Past 12 Hours) Vital Signs Temp Pulse Pulse Pulse Resp BP Pulse Ox 01/01/21 11:18 37.2 C 88 17 124/77 90 01/01/21 10:19 93 01/01/21 09:25 91 01/01/21 07:46 36.4 C L 72 19 131/71 96 01/01/21 07:28 88 20 86 L 01/01/21 07:00 75 01/01/21 02:27 36.5 C 67 20 142/83 H 92 01/01/21 07:04 01/01/21 07:04 PG Care Time/CCT Total # of Minutes Spent Total Time Spent with Patient: Total time spent is greater than 50% in coordination of care (as documented) at patient's floor/unit and/or counseling patient: Coding Level of Care Code 66013 Subseq Hosp Care Lvl 3 Diagnoses Acute respiratory failure with hypoxia J96.01 COVID-19 U07.1 Elevated transaminase level R74.01
--- NOTE | 2021-01-01 16:07 | Hospitalist Progress Note ---
Date of Service January 01, 2021 Assessment & Plan (1) COVID-19: Plan: Please refer to attending addendum as I did not see the patient in person due to being COVID-19 positive. - COVID-19 positive since 12/18 - Procalcitonin pending, ddimer of 1630, ESR 79, LDH 745 - Lymphocytes 0.86, neutrophils 10.94 - CTA completed showing Extensive airspace consolidation throughout both lungs is typical for multifocal pneumonia. Negative for PE. - O2 sats 81% on RA, improved to 90s now on bipap - WBC 12.52 - Cont decadron 6 mg IV daily - Remdesivir not given due to being past 10days of symptoms( today day #12). Pt does not meet criteria for convalescent plasma as AST and ALT are 6x the normal limit and the cut off is 5x, also no more doses available in the hospital currently. -Continue albuterol inhaler treatment, supportive care - proning every 1-2 hrs x 30 minutes or more as patient can tolerate it. -Clinically better still requiring about 13 L of oxygen via mask to maintain saturation -Ongoing cough -CRP is down to 9.36 from 14.0-not a candidate for Tocilizumab -Clinically better and will continue current management (2) Acute respiratory failure with hypoxia: Plan: -Hypoxic at 81% on room air, 89% on 5 L via NC, then placed on BiPAP, continue BiPAP -As above (3) Tachycardia: Plan: -Secondary to COVID-19 infectious process as above, CTA is negative for PE, heparin was ordered in the ER however was never started, awaiting troponins, pending those results will either maintain or discontinue heparin order. -Trending troponins -EKG reviewed showing sinus tach but no ST wave inversions or signs of ischemia -No more tachycardia (4) Elevated transaminase level: Plan: -Follow a.m. LFTs to ensure improvement -AST 244, ALT 390 on admission -Significantly better today. recheck tomorrow -AST is normal and ALT still minimally high-overall improvement (5) Hyponatremia: Plan: -135 on admission, NSS at 80 ml/hr for now for maintenance and to improve this. Monitor with am labs (6) Morbid obesity: Plan: -BMI of 37.9, diet and exercise to be encouraged throughout the hospital stay and on discharge DVT PPx: - teds, heparin subcu CODE: Full code Dispo: From home, likely to remain in the hospital x 2 days Admission and Anticipated Discharge Date Admission Date: December 30, 2020 Subjective 12/31/2020 The patient was seen and examined in telemetry unit and in the Covid room He has been feeling much better and communicating normally without any shortness of breath Still requiring 13 L of oxygen to maintain saturation and complains of cough 01/01/2021 The patient was seen and examined in telemetry unit and in Covid room He has been feeling a little better today and requiring about 7 L of oxygen to maintain saturation Still getting short of breath and desaturation with minimal exertion Review of Systems Review of Systems: All systems reviewed and are unremarkable except as noted b elow Respiratory: Cough with shortness of breath on exertion Physical Exam Physical Exam: Sitting at the side of the bed without any significant distress Constitutional: well developed, well nourished, + ill appearing and + obese Eyes: PERRL, conjunctivae normal, anicteric sclerae ENMT: external ear and nose normal, oropharynx normal Neck: trachea midline, no thyromegaly Respiratory: + respiratory distress and + cough Auscultation: + diminished lung sounds, + crackles (At the bases) and + wheezes Cardiovascular: Rate/Rhythm: regular rate and regular rhythm; not tachycardic Heart Sounds: normal S1 and normal S2; no murmur Gastrointestinal (Abdomen): Inspection/Auscultation: + abdomen distended and normal bowel sounds Percussion/Palpation: abdomen soft; abdomen nontender Neurologic: Alert, awake and oriented x3. No focal sensory and motor deficit appreciated Lymphatic: no cervical or axillary lymphadenopathy Results & Data Results & Data ([facility]) Vital Signs (Past 12 Hours) Vital Signs Temp Pulse Pulse Pulse Resp BP Pulse Ox 01/01/21 15:33 36.8 C 81 22 120/74 91 01/01/21 15:00 94 01/01/21 14:03 100 H 22 91 01/01/21 11:18 37.2 C 88 17 124/77 90 01/01/21 10:19 93 01/01/21 09:25 91 01/01/21 07:46 36.4 C L 72 19 131/71 96 01/01/21 07:28 88 20 86 L 01/01/21 07:00 75 Laboratory Results Short CBC 01/01/21 Range/Units 07:04 WBC 10.98 H (4.8-10.8) K/uL Hgb 13.6 L (14.0-18.0) g/dL Hct 40.2 L (42-52) % Plt Count 330 (130-400) K/uL BMP 01/01/21 07:04 Sodium 139 Potassium 4.1 Chloride 103 Carbon Dioxide 30 BUN 15 Creatinine 0.78 Glucose 107 H Calcium 8.8 Liver Function 01/01/21 Range/Units 07:04 Total Bilirubin 1.1 H (0.2-1) mg/dl AST 80 H (15-37) U/L ALT 281 H (12-78) U/L Alkaline Phosphatase 77 (45-117) U/L Albumin 2.8 L (3.4-5.0) gm/dl Medications Administered Current Inpatient Medications Acetaminophen (Acetaminophen 325 Mg Tab) 650 mg PO Q4H PRN PRN Reason: Moderate Pain Stop: 01/29/21 13:22 Albuterol (Albuterol Hfa 8 Gm Inhaler) 2 puffs INH Q6R [facility] Stop: 01/29/21 18:59 Last Admin: 01/01/21 14:01 Dose: 2 puffs Documented by: Enoxaparin Sodium (Enoxaparin Inj 60 Mg/0.6 Ml Syr) 60 mg SQ BID [facility]; Protocol Stop: 01/29/21 20:59 Last Admin: 01/01/21 08:55 Dose: 60 mg Documented by: Guaifenesin (Guaifenesin 600 Mg Tabcr) 1,200 mg PO Q12 [facility] Stop: 01/29/21 20:59 Last Admin: 01/01/21 08:55 Dose: 1,200 mg Documented by: Dexamethasone 10 mg/ Syringe 2.5 mls @ 1 mls/min IV DAILY [facility] Stop: 01/11/21 08:59 Last Admin: 01/01/21 08:55 Dose: 1 mls/min Documented by: Ondansetron HCl (Ondansetron Inj 2 Mg/Ml 2 Ml Vial) 4 mg IV Q4H PRN PRN Reason: Nausea And Vomiting Stop: 01/29/21 13:22
[2021-01-02] MEDS: ALBUTEROL HFA 8 GM INHALER INH SCH ×4 (00:16→19:29)
[2021-01-02] MEDS: dexAMETHasone 10 MG in SYRINGE 0 ML IV SCH (07:12)
[2021-01-02] MEDS: ENOXAPARIN INJ 60 MG/0.6 ML SYR SQ SCH ×2 (07:12→19:51)
[2021-01-02] MEDS: guaiFENesin 600 MG TABCR PO SCH ×2 (07:12→19:51)
[2021-01-02 07:24] LABS: Basophils # (auto) 0.02 K/uL (0-0.2); Basophils % (auto) 0.2 %; Eosinophils # (auto) 0.03 K/uL (0-0.5); Eosinophils % (auto) 0.3 %; Hematocrit (blood only) 40.3 % (42-52); Hemoglobin 13.8 g/dL (14.0-18.0); Immature Granulocytes # (auto) 0.14 K/uL (0.00-0.02); Immature Granulocytes % (auto) 1.3 %; Lymphocytes # (auto) 1.61 K/uL (1.2-3.4); Lymphocytes % (auto) 14.8 %; Mean Corpuscular Hemoglobin 29.1 pg (25-34); Mean Corpuscular Hgb Conc 34.2 g/dL (32-36); Mean Platelet Volume 10.7 fL (7.4-10.4); Neutrophils # (auto) 7.77 K/uL (1.4-6.5); Neutrophils % (auto) 71.4 %; Platelet Count 349 K/uL (130-400); RDW Standard Deviation 40.7 fL (36.4-46.3); Red Blood Count 4.74 M/uL (4.7-6.1); White Blood Count 10.87 K/uL (4.8-10.8)
[2021-01-02 07:56] LABS: Alanine Aminotransferase 260 U/L (12-78); Albumin Level 2.7 gm/dl (3.4-5.0); Aspartate Aminotransferase 84 U/L (15-37); BUN Creatinine Ratio 16.5 (10-20); Blood Urea Nitrogen 12 mg/dl (7-18); C Reactive Protein 2.61 mg/dl (0-0.29); Calcium 8.8 mg/dl (8.5-10.1); Carbon Dioxide 26 mmol/L (21-32); Chloride 103 mmol/L (98-107); Creatinine Clr Calc Pharmacy 219.8 ml/min; Est GFR (African American) > 150.0 ml/min; Est GFR (Non-African American) 132.4 ml/min; Glucose 94 mg/dl (70-99); Potassium 3.8 mmol/L (3.5-5.1); Sodium 136 mmol/L (136-145)
[2021-01-02 07:59] LABS: Albumin Globulin Ratio 0.7 (0.9-2); Alkaline Phosphatase 75 U/L (45-117); Globulin 4.1 gm/dl (2.5-4.0); Total Protein 6.8 gm/dl (6.4-8.2)
--- NOTE | 2021-01-02 09:43 | Electrocardiogram Report ---
Test Reason : Blood Pressure : / mmHG Vent. Rate : 110 BPM Atrial Rate : 110 BPM P-R Int : 132 ms QRS Dur : 094 ms QT Int : 328 ms P-R-T Axes : 022 052 003 degrees QTc Int : 443 ms Sinus tachycardia Otherwise normal ECG No previous ECGs available Confirmed by John Le ([id number]) on 01/02/2021 9:43:06 AM Referred By: Confirmed By:John Le
[2021-01-02] MEDS ORDERED: POTASSIUM CHLORIDE CRTAB 20 MEQ TABCR PO STA (10:32)
[2021-01-02] MEDS ORDERED: FUROSEMIDE 40 MG/4 ML VIAL IV ONE (10:38)
[2021-01-02] MEDS ORDERED: FUROSEMIDE 40 MG in SYRINGE 0 ML IV ONE (10:45)
--- NOTE | 2021-01-02 11:09 | XRay Report ---
XR chest 1V portable CLINICAL HISTORY: Increasing O2 Req COMPARISON STUDY: Chest CT December 30, 2020. FINDINGS: Lung volumes are at the lower limits of normal. There is no pneumothorax or pleural effusio n. Cardiac mediastinal silhouette is stable. Right lower lung opacity is slightly increased. Left upp er lung airspace opacity has slightly improved. Left basilar consolidation persists. Overall, no sign ificant change since prior exam. IMPRESSION: Overall, no significant change in extensive bilateral airspace opacities consistent with viral pneumonia. ACT 112: Negative or not required by law. Electronically signed by: Logan Martines M.D. 01/02/2021 11:07 AM
[2021-01-02] MEDS: OXYMETAZOLINE 0.05% 30 ML BTL PRN (14:32)
--- NOTE | 2021-01-02 17:16 | Hospitalist Progress Note ---
Date of Service January 02, 2021 Assessment & Plan (1) COVID-19: Plan: Please refer to attending addendum as I did not see the patient in person due to being COVID-19 positive. - COVID-19 positive since 12/18 - Procalcitonin pending, ddimer of 1630, ESR 79, LDH 745 - Lymphocytes 0.86, neutrophils 10.94 - CTA completed showing Extensive airspace consolidation throughout both lungs is typical for multifocal pneumonia. Negative for PE. - O2 sats 81% on RA, improved to 90s now on bipap - WBC 12.52 - Cont decadron 6 mg IV daily - Remdesivir not given due to being past 10days of symptoms( today day #12). Pt does not meet criteria for convalescent plasma as AST and ALT are 6x the normal limit and the cut off is 5x, also no more doses available in the hospital currently. -Continue albuterol inhaler treatment, supportive care - proning every 1-2 hrs x 30 minutes or more as patient can tolerate it. -Clinically better still requiring about 13 L of oxygen via mask to maintain saturation -Ongoing cough -CRP is down to 9.36 from 14.0-not a candidate for Tocilizumab -Clinically better and will continue current management -Decreasing cough and decreasing requirements of nasal cannula oxygen (2) Acute respiratory failure with hypoxia: Plan: -Hypoxic at 81% on room air, 89% on 5 L via NC, then placed on BiPAP, continue BiPAP -As above (3) Tachycardia: Plan: -Secondary to COVID-19 infectious process as above, CTA is negative for PE, heparin was ordered in the ER however was never started, awaiting troponins, pending those results will either maintain or discontinue heparin order. -Trending troponins -EKG reviewed showing sinus tach but no ST wave inversions or signs of ischemia -Still remains tachycardic with minimal movement (4) Elevated transaminase level: Plan: -Follow a.m. LFTs to ensure improvement -AST 244, ALT 390 on admission -Significantly better today. recheck tomorrow -AST is normal and ALT still minimally high-overall improvement (5) Hyponatremia: Plan: -135 on admission, NSS at 80 ml/hr for now for maintenance and to improve this. Monitor with am labs (6) Morbid obesity: Plan: -BMI of 37.9, diet and exercise to be encouraged throughout the hospital stay and on discharge DVT PPx: - teds, heparin subcu CODE: Full code Dispo: From home, likely to remain in the hospital x 2 days Admission and Anticipated Discharge Date Admission Date: December 30, 2020 Subjective 12/31/2020 The patient was seen and examined in telemetry unit and in the Covid room He has been feeling much better and communicating normally without any shortness of breath Still requiring 13 L of oxygen to maintain saturation and complains of cough 01/01/2021 The patient was seen and examined in telemetry unit and in Covid room He has been feeling a little better today and requiring about 7 L of oxygen to maintain saturation Still getting short of breath and desaturation with minimal exertion 01/02/2021 The patient was seen and examined in telemetry unit and in Covid room He has been getting gradually better and requiring less oxygen to maintain saturation Review of Systems Review of Systems: All systems reviewed and are unremarkable except as noted below Respiratory: Cough with shortness of breath on exertion Physical Exam Physical Exam: Sitting at the side of the bed without any significant distress Constitutional: well developed, well nourished, + ill appearing and + obese Eyes: PERRL, conjunctivae normal, anicteric sclerae ENMT: external ear and nose normal, oropharynx normal Neck: trachea midline, no thyromegaly Respiratory: + respiratory distress and + cough Auscultation: + diminished lung sounds, + crackles (At the bases) and + wheezes Cardiovascular: Rate/Rhythm: regular rate and regular rhythm; not tachycardic Heart Sounds: normal S1 and normal S2; no murmur Gastrointestinal (Abdomen): Inspection/Auscultation: + abdomen distended and normal bowel sounds Percussion/Palpation: abdomen soft; abdomen nontender Lymphatic: no cervical or axillary lymphadenopathy Results & Data Results & Data ([facility]) Vital Signs (Past 12 Hours) Vital Signs Temp Pulse Pulse Pulse Resp BP Pulse Ox 01/02/21 15:07 36.8 C 96 H 24 126/78 91 01/02/21 15:00 75 01/02/21 13:19 105 H 18 90 01/02/21 11:33 36.6 C 107 H 20 109/77 89 L 01/02/21 10:43 36.6 C 100 H 24 135/78 89 L 01/02/21 07:54 100 H 16 91 01/02/21 07:06 37 C 84 22 113/66 91 01/02/21 07:00 95 H Pulse Ox 01/02/21 15:07 01/02/21 15:00 01/02/21 13:19 01/02/21 11:33 01/02/21 10:43 89 L 01/02/21 07:54 01/02/21 07:06 01/02/21 07:00
--- NOTE | 2021-01-02 17:31 | Pulmonology Progress Note ---
Date of Service January 02, 2021 Assessment & Plan (1) Acute respiratory failure with hypoxia: (2) COVID-19: (3) Elevated transaminase level: Plan: 20-year-old male significant past medical history aside from obesity presenting to the hospital due to acute hypoxia secondary to COVID-[address] chest 12/30/2020 personally reviewed: Diffuse patchy bilateral alveolar opacities appreciated bilaterally No mediastinal lymphadenopathy --Acute hypoxic respiratory failure Secondary to multilobar COVID-19 pneumonia COVID-19 PCR positive 12/28/2020 CRP 14.1--> 9.36 --> 2.61 Procalcitonin 0.81 Continue with O2 supplementation to keep oxygen saturation between 90-92%. Awake proning will be helpful Continue with incentive spirometry Continue with flutter valve. Recommend patient to be kept euvolemic to negative balance --Transaminitis Trending down Continue to monitor Plan: In/out: -1 L, urine output 4700 Keep the patient negative balance. Chest x-ray from today does not show any significant change compared to the time of presentation. I will give the patient 40 mg of Lasix as well as potassium 40 mEq. Try to gradually go down on O2 to keep O2 saturation between greater than 89% Continue with dexamethasone 10 mg Case discussed with Dr. Brewer Please note the above document was generated using voice recognition software. It may contain grammatical, syntax or spelling errors.Any formal questions or concerns about the content, text or information contained within the body of this dictation should be directly addressed to the provider for clarification. Admission and Anticipated Discharge Date Admission Date: December 30, 2020 Subjective Patient seen and examined at bedside. No acute distress. No adverse events overnight. Overnight patient was able to tolerate BiPAP. After I went down on the BiPAP settings. He was on 13 L nasal cannula saturating 92-93% He had just finished his breakfast. Fair appetite. Says he is feeling the same. Still not able to get more than 750 on the spirometry. Encouraged to go at least fifteen 100-2000. No chest pain. Not bringing up any phlegm. Review of Systems Review of Systems: All systems reviewed & are unremarkable except as noted in Subjective Physical Exam Physical Exam: Constitutional: No acute distress HEENT: EOMI, PERRLA Respiratory system: Decreased air entry bilaterally, no wheeze, rhonchi, positive crackles bilateral lower lobes CVS: S1-S2 positive, no murmurs or gallops Abdomen: Soft, nontender, nondistended, positive bowel sounds x4, obese Extremities: +2 pulses bilaterally radialis/ dorsalis pedis, no cyanosis, no edema Neuro: Awake alert oriented x3 Psych: Normal mood and affect G/U: No Berman Skin: no rashes, warm and dry Lymphatic: no cervical or axillary lymphadenopathy Results & Data Results & Data ([facility]) Vital Signs (Past 12 Hours) Vital Signs Temp Pulse Pulse Pulse Resp BP Pulse Ox 01/02/21 15:07 36.8 C 96 H 24 126/78 91 01/02/21 15:00 75 01/02/21 13:19 105 H 18 90 01/02/21 11:33 36.6 C 107 H 20 109/77 89 L 01/02/21 10:43 36.6 C 100 H 24 135/78 89 L 01/02/21 07:54 100 H 16 91 01/02/21 07:06 37 C 84 22 113/66 91 01/02/21 07:00 95 H Pulse Ox 01/02/21 15:07 01/02/21 15:00 01/02/21 13:19 01/02/21 11:33 01/02/21 10:43 89 L 01/02/21 07:54 01/02/21 07:06 01/02/21 07:00 01/02/21 06:50 01/02/21 06:50 PG Care Time/CCT Total # of Minutes Spent Total Time Spent with Patient: Total time spent is greater than 50% in coordination of care (as documented) at patient's floor/unit and/or counseling patient: [place] [address] Subseq Hosp Care Lvl 3 Patient Type Established Diagnoses Acute respiratory failure with hypoxia J96.01 COVID-19 U07.1 Elevated transaminase level R74.01
[2021-01-03] MEDS: ALBUTEROL HFA 8 GM INHALER INH SCH ×3 (00:09→14:55)
[2021-01-03 07:00] LABS: BUN Creatinine Ratio 16.8 (10-20); Creatinine Clr Calc Pharmacy 193.8 ml/min; Est GFR (African American) 146.2 ml/min; Est GFR (Non-African American) 126.2 ml/min; Magnesium 2.4 mg/dl (1.8-2.4); Potassium 3.9 mmol/L (3.5-5.1)
[2021-01-03] MEDS: OXYMETAZOLINE 0.05% 30 ML BTL PRN (08:15)
[2021-01-03] MEDS: dexAMETHasone 10 MG in SYRINGE 0 ML IV SCH (08:15)
[2021-01-03] MEDS: ENOXAPARIN INJ 60 MG/0.6 ML SYR SQ SCH ×2 (08:15→21:55)
[2021-01-03] MEDS: guaiFENesin 600 MG TABCR PO SCH ×2 (08:15→21:54)
[2021-01-03] MEDS ORDERED: FUROSEMIDE 40 MG in SYRINGE 0 ML IV ONE (09:00)
[2021-01-03] MEDS ORDERED: FUROSEMIDE 40 MG/4 ML VIAL IV ONE (09:00)
--- NOTE | 2021-01-03 10:01 | Pulmonology Progress Note ---
Date of Service January 03, 2021 Assessment & Plan (1) Acute respiratory failure with hypoxia: (2) COVID-19: (3) Elevated transaminase level: Plan: 20-year-old male significant past medical history aside from obesity presenting to the hospital due to acute hypoxia secondary to COVID-[address] chest 12/30/2020 personally reviewed: Diffuse patchy bilateral alveolar opacities appreciated bilaterally No mediastinal lymphadenopathy --Acute hypoxic respiratory failure Secondary to multilobar COVID-19 pneumonia COVID-19 PCR positive 12/28/2020 CRP 14.1--> 9.36 --> 2.61 Procalcitonin 0.81 Continue with O2 supplementation to keep oxygen saturation between 90-92%. Awake proning will be helpful Continue with incentive spirometry Continue with flutter valve. Recommend patient to be kept euvolemic to negative balance --Transaminitis Trending down Continue to monitor Plan: In/out: -1.7 L, urine output 3675 Keep the patient negative balance. Patient got another dose of Lasix today. Clinically patient is doing better. We will still recommend BiPAP nightly. Complete total 10 days of dexamethasone of 10 mg. Pulmonary will follow peripherally. Please call directly with any questions. Case discussed with Dr. Brewer Please note the above document was generated using voice recognition software. It may contain grammatical, syntax or spelling errors.Any formal questions or concerns about the content, text or information contained within the body of this dictation should be directly addressed to the provider for clarification. Admission and Anticipated Discharge Date Admission Date: December 30, 2020 Subjective Patient seen and examined. He was actually walking in the corridor having to stop. He is doing well on 2 L nasal cannula at rest but on exertion he does need up to 10 L. Denies any complaints of shortness of breath or chest tightness at that time. Has been doing well. Did not use BiPAP overnight. Review of Systems Review of Systems: All systems reviewed & are unremarkable except as noted in Subjective Physical Exam Physical Exam: Constitutional: No acute distress HEENT: EOMI, PERRLA Respiratory system: Decreased air entry bilaterally, no wheeze, rhonchi, positive crackles bilateral lower lobes CVS: S1-S2 positive, no murmurs or gallops Abdomen: Soft, nontender, nondistended, positive bowel sounds x4, obese Extremities: +2 pulses bilaterally radialis/ dorsalis pedis, no cyanosis, no edema Neuro: Awake alert oriented x3 Psych: Normal mood and affect G/U: No Berman Skin: no rashes, warm and dry Lymphatic: no cervical or axillary lymphadenopathy Results & Data Results & Data ([facility]) Vital Signs (Past 12 Hours) Vital Signs Temp Pulse Pulse Pulse Resp BP Pulse Ox 01/03/21 07:46 109 H 16 90 01/03/21 07:09 36.8 C 115 H 21 143/98 H 90 01/03/21 07:00 71 01/03/21 03:36 36.9 C 76 18 117/75 96 01/03/21 00:11 108 H 20 96 01/02/21 23:00 54 L 01/02/21 22:41 36.8 C 77 18 128/73 93 Pulse Ox 01/03/21 07:46 01/03/21 07:09 01/03/21 07:00 92 01/03/21 03:36 01/03/21 00:11 01/02/21 23:00 01/02/21 22:41 01/02/21 06:50 01/03/21 05:51 PG Care Time/CCT Total # of Minutes Spent Total Time Spent with Patient: Total time spent is greater than 50% in coordination of care (as documented) at patient's floor/unit and/or counseling patient: Coding Level of Care Code 57243 Subseq Hosp Care Lvl 2 Diagnoses Acute respiratory failure with hypoxia J96.01 COVID-19 U07.1 Elevated transaminase level R74.01
--- NOTE | 2021-01-03 17:55 | Hospitalist Progress Note ---
Date of Service January 03, 2021 Assessment & Plan (1) COVID-19: Plan: Please refer to attending addendum as I did not see the patient in person due to being COVID-19 positive. - COVID-19 positive since 12/18 - Procalcitonin pending, ddimer of 1630, ESR 79, LDH 745 - Lymphocytes 0.86, neutrophils 10.94 - CTA completed showing Extensive airspace consolidation throughout both lungs is typical for multifocal pneumonia. Negative for PE. - O2 sats 81% on RA, improved to 90s now on bipap - WBC 12.52 - Cont decadron 6 mg IV daily - Remdesivir not given due to being past 10days of symptoms( today day #12). Pt does not meet criteria for convalescent plasma as AST and ALT are 6x the normal limit and the cut off is 5x, also no more doses available in the hospital currently. -Continue albuterol inhaler treatment, supportive care - proning every 1-2 hrs x 30 minutes or more as patient can tolerate it. -Clinically better still requiring about 13 L of oxygen via mask to maintain saturation -Ongoing cough -CRP is down to 9.36 from 14.0-not a candidate for Tocilizumab -Has improved a lot and not require any oxygen at rest -We will get a 2 steps O2 saturation tomorrow for possible discharge (2) Acute respiratory failure with hypoxia: Plan: -Hypoxic at 81% on room air, 89% on 5 L via NC, then placed on BiPAP, continue BiPAP -As above -Advised to use BiPAP at night (3) Tachycardia: Plan: -Secondary to COVID-19 infectious process as above, CTA is negative for PE, heparin was ordered in the ER however was never started, awaiting troponins, pending those results will either maintain or discontinue heparin order. -Trending troponins -EKG reviewed showing sinus tach but no ST wave inversions or signs of ischemia -Still remains tachycardic with minimal movement -Still getting tachycardia with activities (4) Elevated transaminase level: Plan: -Follow a.m. LFTs to ensure improvement -AST 244, ALT 390 on admission -Significantly better today. recheck tomorrow -AST is normal and ALT still minimally high-overall improvement (5) Hyponatremia: Plan: -135 on admission, NSS at 80 ml/hr for now for maintenance and to improve this. Monitor with am labs (6) Morbid obesity: Plan: -BMI of 37.9, diet and exercise to be encouraged throughout the hospital stay and on discharge DVT PPx: - teds, heparin subcu CODE: Full code Dispo: From home, likely to remain in the hospital x 2 days Admission and Anticipated Discharge Date Admission Date: December 30, 2020 Subjective 12/31/2020 The patient was seen and examined in telemetry unit and in the Covid room He has been feeling much better and communicating normally without any shortness of breath Still requiring 13 L of oxygen to maintain saturation and complains of cough 01/01/2021 The patient was seen and examined in telemetry unit and in Covid room He has been feeling a little better today and requiring about 7 L of oxygen to maintain saturation Still getting short of breath and desaturation with minimal exertion 01/02/2021 The patient was seen and examined in telemetry unit and in Covid room He has been getting gradually better and requiring less oxygen to maintain saturation 01/03/2021 The patient was seen and examined in telemetry unit and in the Covid room He has been feeling much better and saturating even on room air at rest Still getting shortness of breath with desaturation and tachycardia with ambulation Review of Systems Review of Systems: All systems reviewed and are unremarkable except as noted below Respiratory: Cough with shortness of breath on exertion Physical Exam Physical Exam: Sitting at the side of the bed without any significant distress Constitutional: well developed, well nourished, + ill appearing and + obese Eyes: PERRL, conjunctivae normal, anicteric sclerae ENMT: external ear and nose normal, oropharynx normal Neck: trachea midline, no thyromegaly Respiratory: + respiratory distress and + cough Auscultation: + diminished lung sounds, + crackles (At the bases) and + wheezes Cardiovascular: Rate/Rhythm: regular rate and regular rhythm; not tachycardic Heart Sounds: normal S1 and normal S2; no murmur Gastrointestinal (Abdomen): Inspection/Auscultation: + abdomen distended and normal bowel sounds Percussion/Palpation: abdomen soft; abdomen nontender Musculoskeletal: No acute arthritis in any joint Neurologic: Alert, awake and oriented x3 Lymphatic: no cervical or axillary lymphadenopathy Results & Data Results & Data ([facility]) Vital Signs (Past 12 Hours) Vital Signs Temp Pulse Pulse Pulse Resp BP Pulse Ox 01/03/21 15:34 36.5 C 94 H 19 116/79 92 01/03/21 15:00 91 H 01/03/21 11:06 36.7 C 109 H 20 120/77 92 01/03/21 07:46 109 H 16 90 01/03/21 07:09 36.8 C 115 H 21 143/98 H 90 01/03/21 07:00 71 Pulse Ox 01/03/21 15:34 01/03/21 15:00 01/03/21 11:06 01/03/21 07:46 01/03/21 07:09 01/03/21 07:00 92 Laboratory Results BMP 01/03/21 05:51 Sodium 137 Potassium 3.9 Chloride 101 Carbon Dioxide 29 BUN 14 Creatinine 0.81 Glucose 94 Calcium 9.0 Medications Administered Current Inpatient Medications Acetaminophen (Acetaminophen 325 Mg Tab) 650 mg PO Q4H PRN PRN Reason: Moderate Pain Stop: 01/29/21 13:22 Enoxaparin Sodium (Enoxaparin Inj 60 Mg/0.6 Ml Syr) 60 mg SQ BID [facility]; Protocol Stop: 01/29/21 20:59 Last Admin: 01/03/21 08:15 Dose: 60 mg Documented by: Guaifenesin (Guaifenesin 600 Mg Tabcr) 1,200 mg PO Q12 [facility] Stop: 01/29/21 20:59 Last Admin: 01/03/21 08:15 Dose: 1,200 mg Documented by: Dexamethasone 10 mg/ Syringe 2.5 mls @ 1 mls/min IV DAILY [facility] Stop: 01/11/21 08:59 Last Admin: 01/03/21 08:15 Dose: 1 mls/min Documented by: Ondansetron HCl (Ondansetron Inj 2 Mg/Ml 2 Ml Vial) 4 mg IV Q4H PRN PRN Reason: Nausea And Vomiting Stop: 01/29/21 13:22 Oxymetazoline HCl (Oxymetazoline 0.05% 30 Ml Btl) 1 sprays NA Q6 PRN PRN Reason: Nasal Congestion Stop: 02/01/21 11:31 Last Admin: 01/03/21 08:15 Dose: 1 sprays Documented by:
[2021-01-04 06:41] LABS: Basophils # (auto) 0.02 K/uL (0-0.2); Basophils % (auto) 0.2 %; Eosinophils # (auto) 0.11 K/uL (0-0.5); Eosinophils % (auto) 1.1 %; Hematocrit (blood only) 42.7 % (42-52); Hemoglobin 14.5 g/dL (14.0-18.0); Immature Granulocytes # (auto) 0.37 K/uL (0.00-0.02); Immature Granulocytes % (auto) 3.8 %; Lymphocytes # (auto) 2.79 K/uL (1.2-3.4); Mean Corpuscular Hemoglobin 28.8 pg (25-34); Mean Corpuscular Volume 84.9 fL (80-100); Mean Platelet Volume 10.5 fL (7.4-10.4); Monocytes # (auto) 1.08 K/uL (0.11-0.59); Monocytes % (auto) 11.2 %; Neutrophils # (auto) 5.26 K/uL (1.4-6.5); Neutrophils % (auto) 54.7 %; Platelet Count 451 K/uL (130-400); RDW Standard Deviation 40.5 fL (36.4-46.3); Red Blood Count 5.03 M/uL (4.7-6.1); White Blood Count 9.63 K/uL (4.8-10.8)
[2021-01-04 07:11] LABS: BUN Creatinine Ratio 17.2 (10-20); Calcium 9.2 mg/dl (8.5-10.1); Creatinine Clr Calc Pharmacy 192.8 ml/min; Est GFR (African American) 149.3 ml/min; Est GFR (Non-African American) 128.8 ml/min; Magnesium 2.6 mg/dl (1.8-2.4); Potassium 4.3 mmol/L (3.5-5.1)
[2021-01-04 07:14] LABS: Albumin Globulin Ratio 0.6 (0.9-2); Bilirubin,Total 0.7 mg/dl (0.2-1); Globulin 4.7 gm/dl (2.5-4.0); Phosphorus 3.8 mg/dl (2.5-4.9); Total Protein 7.7 gm/dl (6.4-8.2)
[2021-01-04] MEDS: guaiFENesin 600 MG TABCR PO SCH ×2 (08:04→21:17)
[2021-01-04] MEDS: ENOXAPARIN INJ 60 MG/0.6 ML SYR SQ SCH ×2 (08:05→21:18)
[2021-01-04] MEDS: dexAMETHasone 10 MG in SYRINGE 0 ML IV SCH (08:08)
--- NOTE | 2021-01-04 17:16 | Hospitalist Progress Note ---
Date of Service January 04, 2021 Assessment & Plan (1) COVID-19: Plan: Please refer to attending addendum as I did not see the patient in person due to being COVID-19 positive. - COVID-19 positive since 12/18 - Procalcitonin pending, ddimer of 1630, ESR 79, LDH 745 - Lymphocytes 0.86, neutrophils 10.94 - CTA completed showing Extensive airspace consolidation throughout both lungs is typical for multifocal pneumonia. Negative for PE. - O2 sats 81% on RA, improved to 90s now on bipap - WBC 12.52 - Cont decadron 6 mg IV daily -changed to 10 mg daily - Remdesivir not given due to being past 10days of symptoms( today day #12). Pt does not meet criteria for convalescent plasma as AST and ALT are 6x the normal limit and the cut off is 5x, also no more doses available in the hospital currently. -Continue albuterol inhaler treatment, supportive care - proning every 1-2 hrs x 30 minutes or more as patient can tolerate it. -Clinically better still requiring about 13 L of oxygen via mask to maintain saturation -Ongoing cough -CRP is down to 9.36 from 14.0-not a candidate for Tocilizumab -Has improved a lot and not require any oxygen at rest -Still getting hypoxia, increasing shortness of breath and tachycardia with minimal ambulation -Not yet ready to be discharged-we will needed to do steps O2 saturation test before discharge -Decadron should be continued for 10 days in total (2) Acute respiratory failure with hypoxia: Plan: -Hypoxic at 81% on room air, 89% on 5 L via NC, then placed on BiPAP, continue BiPAP -As above -Advised to use BiPAP at night (3) Tachycardia: Plan: -Secondary to COVID-19 infectious process as above, CTA is negative for PE, heparin was ordered in the ER however was never started, awaiting troponins, pending those results will either maintain or discontinue heparin order. -Trending troponins -EKG reviewed showing sinus tach but no ST wave inversions or signs of ischemia -Still remains tachycardic with minimal movement -Still getting tachycardia with activities (4) Elevated transaminase level: Plan: -Follow a.m. LFTs to ensure improvement -AST 244, ALT 390 on admission -Significantly better today. recheck tomorrow -AST is normal and ALT still minimally high-overall improvement (5) Hyponatremia: Plan: -135 on admission, NSS at 80 ml/hr for now for maintenance and to improve this. Monitor with am labs (6) Morbid obesity: Plan: -BMI of 37.9, diet and exercise to be encouraged throughout the hospital stay and on discharge DVT PPx: - teds, heparin subcu CODE: Full code Dispo: Likely to return home Likely to need oxygen on discharge Admission and Anticipated Discharge Date Admission Date: December 30, 2020 Subjective 12/31/2020 The patient was seen and examined in telemetry unit and in the Covid room He has been feeling much better and communicating normally without any shortness of breath Still requiring 13 L of oxygen to maintain saturation and complains of cough 01/01/2021 The patient was seen and examined in telemetry unit and in Covid room He has been feeling a little better today and requiring about 7 L of oxygen to maintain saturation Still getting short of breath and desaturation with minimal exertion 01/02/2021 The patient was seen and examined in telemetry unit and in Covid room He has been getting gradually better and requiring less oxygen to maintain saturation 01/03/2021 The patient was seen and examined in telemetry unit and in the Covid room He has been feeling much better and saturating even on room air at rest Still getting shortness of breath with desaturation and tachycardia with ambulation 01/04/2021 The patient was seen and examined in telemetry unit and in the Covid room He remains a stable at rest and requires about 2 L to maintain saturation He gets short of breath with exertion and become very tachycardic Not ready yet to be discharged Review of Systems Review of Systems: All systems reviewed and are unremarkable except as noted below Respiratory: Cough with shortness of breath on exertion Physical Exam Physical Exam: Sitting at the side of the bed without any significant distress Constitutional: well developed, well nourished, + ill appearing and + obese Eyes: PERRL, conjunctivae normal, anicteric sclerae ENMT: external ear and nose normal, oropharynx normal Neck: trachea midline, no thyromegaly Respiratory: + respiratory distress and + cough Auscultation: + diminished lung sounds, + crackles (At the bases) and + wheezes Cardiovascular: Rate/Rhythm: regular rate and regular rhythm; not tachycardic Heart Sounds: normal S1 and normal S2; no murmur Gastrointestinal (Abdomen): Inspection/Auscultation: + abdomen distended and normal bowel sounds Percussion/Palpation: abdomen soft; abdomen nontender Musculoskeletal: No acute arthritis involving any joint Neurologic: Alert, awake and oriented x3. Lymphatic: no cervical or axillary lymphadenopathy Results & Data Results & Data ([facility]) Vital Signs (Past 12 Hours) Vital Signs Temp Pulse Pulse Resp BP Pulse Ox Pulse Ox 01/04/21 15:58 36.5 C 72 19 149/77 H 95 01/04/21 15:00 97 H 01/04/21 10:55 36.5 C 94 H 19 118/74 92 01/04/21 07:58 100 H 01/04/21 07:51 36.5 C 95 H 19 119/76 93 01/04/21 07:00 92 Laboratory Results Short CBC 01/04/21 Range/Units 05:57 WBC 9.63 (4.8-10.8) K/uL Hgb 14.5 (14.0-18.0) g/dL Hct 42.7 (42-52) % Plt Count 451 H (130-400) K/uL BMP 01/04/21 05:57 Sodium 137 Potassium 4.3 Chloride 102 Carbon Dioxide 27 BUN 13 Creatinine 0.77 Glucose 93 Calcium 9.2 Liver Function 01/04/21 Range/Units 05:57 Total Bilirubin 0.7 (0.2-1) mg/dl AST 41 H (15-37) U/L ALT 240 H (12-78) U/L Alkaline Phosphatase 71 (45-117) U/L Albumin 3.0 L (3.4-5.0) gm/dl Medications Administered Current Inpatient Medications Acetaminophen (Acetaminophen 325 Mg Tab) 650 mg PO Q4H PRN PRN Reason: Moderate Pain Stop: 01/29/21 13:22 Enoxaparin Sodium (Enoxaparin Inj 60 Mg/0.6 Ml Syr) 60 mg SQ BID [facility]; Protocol Stop: 01/29/21 20:59 Last Admin: 01/04/21 08:05 Dose: 60 mg Documented by: Guaifenesin (Guaifenesin 600 Mg Tabcr) 1,200 mg PO Q12 [facility] Stop: 01/29/21 20:59 Last Admin: 01/04/21 08:04 Dose: 1,200 mg Documented by: Dexamethasone 10 mg/ Syringe 2.5 mls @ 1 mls/min IV DAILY [facility] Stop: 01/11/21 08:59 Last Admin: 01/04/21 08:08 Dose: 1 mls/min Documented by: Ondansetron HCl (Ondansetron Inj 2 Mg/Ml 2 Ml Vial) 4 mg IV Q4H PRN PRN Reason: Nausea And Vomiting Stop: 01/29/21 13:22 Oxymetazoline HCl (Oxymetazoline 0.05% 30 Ml Btl) 1 sprays NA Q6 PRN PRN Reason: Nasal Congestion Stop: 02/01/21 11:31 Last Admin: 01/03/21 08:15 Dose: 1 sprays Documented by:
[2021-01-05] MEDS: dexAMETHasone 10 MG in SYRINGE 0 ML IV SCH (08:02)
[2021-01-05] MEDS: ENOXAPARIN INJ 60 MG/0.6 ML SYR SQ SCH ×2 (08:04→20:55)
[2021-01-05] MEDS: guaiFENesin 600 MG TABCR PO SCH ×2 (08:04→20:54)
--- NOTE | 2021-01-05 11:02 | Hospitalist Progress Note ---
Date of Service January 05, 2021 Assessment & Plan (1) COVID-19: (2) Acute respiratory failure with hypoxia: Plan: -2/2 COVID pneumonia- COVID-19 positive since 12/18 -Remdesivir:not given due to being past 10days of symptoms( today day #13) - dexamethasone x5 - saturing well on 2L NC - CRP trending down: 14> 9.36 > 2.61 - even though pt is feeling well: his SpO2 decreased to 81% with ambulation on 1L NC - CRP tomorrow - walk test again tomorrow: if continues to desaturate then will consider CT chest - pulm consulted: recommended dexa 10mg, BiPAP at night, and I/O: keep the pt in negative balance ----- BP is 114/70 and have not gotten lasix 40mg IV 2 days ago (3) Tachycardia: Plan: - resolved - only tachy with ambulation but asymptomatic (4) Elevated transaminase level: Plan: - trending down - CMP tomorrow (5) Hyponatremia: Plan: - resolved (6) Morbid obesity: Plan: -BMI of 37.9, diet and exercise to be encouraged throughout the hospital stay and on discharge DVT PPx: - teds, heparin subcu CODE: Full code Dispo: Likely to return home Admission and Anticipated Discharge Date Admission Date: December 30, 2020 Subjective Pt is a 20 y/o M with no PMH admitted for COVID pneumonia Today at bedside: pt denied any SOB, CP or cough. Per pt he is feeling very well and would like to go home. Review of Systems Review of Systems: At least 10 Review of systems were reviewed and all negative except as indicated in HPI Physical Exam Physical Exam: General:.NC in place NAD, well developed HEENT:. Normal Conjunctiva, EOMI Lungs:. CTA, no wheezing or crackles Psych:. AAOx3, normal affect Results & Data Results & Data ([facility]) Vital Signs (Past 12 Hours) Vital Signs Temp Pulse Pulse Pulse Resp BP Pulse Ox 01/05/21 10:58 36.7 C 91 H 19 114/70 93 01/05/21 07:52 36.6 C 97 H 119/66 95 01/05/21 07:00 01/05/21 04:36 36.7 C 58 L 12 114/68 97 01/05/21 04:00 62 08/27/21 23:32 37.0 C 87 18 111/58 L 93 Pulse Ox 01/05/21 10:58 01/05/21 07:52 01/05/21 07:00 93 01/05/21 04:36 01/05/21 04:00 01/04/21 23:32
[2021-01-06 06:11] LABS: Basophils # (auto) 0.02 K/uL (0-0.2); Basophils % (auto) 0.2 %; Eosinophils # (auto) 0.07 K/uL (0-0.5); Eosinophils % (auto) 0.7 %; Hematocrit (blood only) 42.8 % (42-52); Hemoglobin 14.4 g/dL (14.0-18.0); Immature Granulocytes # (auto) 0.39 K/uL (0.00-0.02); Immature Granulocytes % (auto) 3.6 %; Lymphocytes # (auto) 3.84 K/uL (1.2-3.4); Lymphocytes % (auto) 35.9 %; Mean Corpuscular Hemoglobin 29.1 pg (25-34); Mean Corpuscular Hgb Conc 33.6 g/dL (32-36); Mean Corpuscular Volume 86.5 fL (80-100); Mean Platelet Volume 9.5 fL (7.4-10.4); Monocytes # (auto) 1.21 K/uL (0.11-0.59); Monocytes % (auto) 11.3 %; Neutrophils # (auto) 5.16 K/uL (1.4-6.5); Neutrophils % (auto) 48.3 %; Platelet Count 507 K/uL (130-400); RDW Coefficient of Variation 12.8 % (11.5-14.5); RDW Standard Deviation 40.9 fL (36.4-46.3); Red Blood Count 4.95 M/uL (4.7-6.1); White Blood Count 10.69 K/uL (4.8-10.8)
[2021-01-06 06:37] LABS: BUN Creatinine Ratio 14.6 (10-20); Creatinine Clr Calc Pharmacy 153.6 ml/min; Est GFR (African American) 129.5 ml/min; Est GFR (Non-African American) 111.8 ml/min; Potassium 4.4 mmol/L (3.5-5.1)
[2021-01-06 06:40] LABS: Albumin Globulin Ratio 0.7 (0.9-2); Bilirubin,Total 0.5 mg/dl (0.2-1); C Reactive Protein 0.72 mg/dl (0-0.29); Globulin 4.2 gm/dl (2.5-4.0); Total Protein 7.2 gm/dl (6.4-8.2)
[2021-01-06] MEDS: ENOXAPARIN INJ 60 MG/0.6 ML SYR SQ SCH ×2 (08:09→21:00)
[2021-01-06] MEDS: guaiFENesin 600 MG TABCR PO SCH ×2 (08:10→20:36)
[2021-01-06] MEDS: dexAMETHasone 10 MG in SYRINGE 0 ML IV SCH (08:16)
--- NOTE | 2021-01-06 12:04 | Hospitalist Progress Note ---
Date of Service January 06, 2021 Assessment & Plan (1) COVID-19: (2) Acute respiratory failure with hypoxia: Plan: -2/2 COVID pneumonia- COVID-19 positive since 12/18 -Remdesivir:not given due to being past 10days of symptoms( today day #14) - dexamethasone x 6 - Still having hypoxia with ambulation ---- 2 Step test: spo2 of 88% and improved to 92% with 3 L - CRP trending down: 14> 9.36 > 2.61 > 0.7 - walk test again tomorrow: likely discharge tomorrow - pulm consulted: recommended dexa 10mg, BiPAP at night, and I/O: keep the pt in negative balance ----- BP is 120/76 and have not gotten lasix 40mg IV 3 days ago (3) Tachycardia: Plan: - resolved - only tachy with ambulation but asymptomatic (4) Elevated transaminase level: Plan: - AST back to normal range - ALT trending down - CMP tomorrow (5) Hyponatremia: Plan: - resolved (6) Morbid obesity: Plan: -BMI of 37.9, diet and exercise to be encouraged throughout the hospital stay and on discharge DVT PPx: - teds, heparin subcu CODE: Full code Dispo:Likely discharge tomorrow Admission and Anticipated Discharge Date Admission Date: December 30, 2020 Subjective Pt is a 20 y/o M with no PMH admitted for COVID pneumonia Today at bedside: Pt was sitting on bed comfortably. pt denied any SOB, CP or cough. Review of Systems Review of Systems: all negative except as indicated in HPI Physical Exam Physical Exam: General:. NAD, well developed HEENT:. Normal Conjunctiva, EOMI Lungs:. CTA, no wheezing or crackles Heart:. Normal S1, S2, no murmur Psych:. AAOx3, normal affect Results & Data Results & Data ([facility]) Vital Signs (Past 12 Hours) Vital Signs Temp Pulse Pulse Pulse Pulse Pulse Pulse 01/06/21 11:34 36.5 C 99 H 01/06/21 10:53 132 H 117 H 134 H 110 H 112 H 01/06/21 08:01 36.8 C 88 01/06/21 03:48 36.7 C 80 Resp Resp Resp Resp Resp Resp BP 08/29/21 11:34 19 120/76 01/06/21 10:53 20 20 20 16 18 01/06/21 08:01 20 107/73 01/06/21 03:48 18 102/53 L Pulse Ox Pulse Ox Pulse Ox Pulse Ox Pulse Ox Pulse Ox 01/06/21 11:34 92 01/06/21 10:53 88 L 92 88 L 91 90 01/06/21 08:01 94 01/06/21 03:48 96 Laboratory Results Short CBC 12/30/20 12/31/20 01/01/21 Range/Units 10:03 05:57 07:04 WBC (4.8-10.8) K/uL Hgb (14.0-18.0) g/dL Hct (42-52) % Plt Count (130-400) K/uL ALT 390 H 303 H 281 H (12-78) U/L C-Reactive Protein 14.10 H 9.36 H (0-0.29) mg/dl 01/02/21 01/04/21 01/06/21 Range/Units 06:50 05:57 05:52 WBC 10.69 (4.8-10.8) K/uL Hgb 14.4 (14.0-18.0) g/dL Hct 42.8 (42-52) % Plt Count 507 H (130-400) K/uL ALT 260 H 240 H (12-78) U/L C-Reactive Protein 2.61 H (0-0.29) mg/dl 01/06/21 Range/Units 05:52 WBC (4.8-10.8) K/uL Hgb (14.0-18.0) g/dL Hct (42-52) % Plt Count (130-400) K/uL ALT 176 H (12-78) U/L C-Reactive Protein 0.72 H (0-0.29) mg/dl BMP 01/06/21 05:52 Sodium 139 Potassium 4.4 Chloride 106 Carbon Dioxide 29 BUN 14 Creatinine 0.96 Glucose 95 Calcium 9.0 Liver Function 01/06/21 Range/Units 05:52 Total Bilirubin 0.5 (0.2-1) mg/dl AST 28 (15-37) U/L ALT 176 H (12-78) U/L Alkaline Phosphatase 72 (45-117) U/L Albumin 3.0 L (3.4-5.0) gm/dl
[2021-01-07 07:03] LABS: Basophils # (auto) 0.02 K/uL (0-0.2); Basophils % (auto) 0.2 %; Eosinophils # (auto) 0.03 K/uL (0-0.5); Eosinophils % (auto) 0.3 %; Hematocrit (blood only) 42.7 % (42-52); Hemoglobin 14.4 g/dL (14.0-18.0); Immature Granulocytes # (auto) 0.26 K/uL (0.00-0.02); Immature Granulocytes % (auto) 2.5 %; Lymphocytes % (auto) 36.2 %; Mean Corpuscular Hemoglobin 29.4 pg (25-34); Mean Corpuscular Hgb Conc 33.7 g/dL (32-36); Mean Corpuscular Volume 87.3 fL (80-100); Mean Platelet Volume 9.8 fL (7.4-10.4); Monocytes # (auto) 0.96 K/uL (0.11-0.59); Monocytes % (auto) 9.4 %; Neutrophils # (auto) 5.26 K/uL (1.4-6.5); Neutrophils % (auto) 51.4 %; Platelet Count 487 K/uL (130-400); RDW Standard Deviation 41.6 fL (36.4-46.3); Red Blood Count 4.89 M/uL (4.7-6.1); White Blood Count 10.23 K/uL (4.8-10.8)
[2021-01-07 07:36] LABS: Albumin Level 3.2 gm/dl (3.4-5.0); BUN Creatinine Ratio 15.1 (10-20); Calcium 9.1 mg/dl (8.5-10.1); Creatinine Clr Calc Pharmacy 159.5 ml/min; Est GFR (African American) 136.4 ml/min; Est GFR (Non-African American) 117.6 ml/min; Potassium 4.6 mmol/L (3.5-5.1)
[2021-01-07 07:39] LABS: Albumin Globulin Ratio 0.8 (0.9-2); Bilirubin,Total 0.5 mg/dl (0.2-1); Globulin 3.9 gm/dl (2.5-4.0); Total Protein 7.1 gm/dl (6.4-8.2)
[2021-01-07] MEDS: guaiFENesin 600 MG TABCR PO SCH (08:13)
[2021-01-07] MEDS: ENOXAPARIN INJ 60 MG/0.6 ML SYR SQ SCH (08:13)
[2021-01-07] MEDS: dexAMETHasone 10 MG in SYRINGE 0 ML IV SCH (08:24)
--- NOTE | 2021-01-07 11:50 | Discharge Summary ---
Date of Service January 07, 2021 Admission HPI Per Admitting Provider This is a 20-year-old male without past medical history except for one time having pneumonia about 5 years ago, who presents to the ER with worsening shortness of breath. Lives at home with parents, parents both with symptoms. Reports his mother got vaccinated, father had one injection and scheduled for a second dose but has not yet received. 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 Admits to traveling to [place] recently with friend and girlfriend for an indoor wedding on the , where the bride tested on the . He presented to an urgent care clinic on 12/17 due to sinus congestion, cough, fever, chills, fatigue and was given amoxicillin course for sinus infection, and was tested for Covid there, and his results were positive for COVID-19 on 12/18. He is currently 12 days out from having symptoms. Today he presented to the ER and was 81% on room air, on 5 L was at 89% O2 sats, and is now on BiPAP. He feels his breathing is improved on BiPAP. Patient received Decadron, and CT of the chest is pending. Admission Exam Per Admitting Provider Constitutional: + fever, sweats and chills Eyes: No diplopia, no worsening or blurred vision ENT: normal hearing, no trouble swallowing Respiratory: + cough dry, + dyspnea at rest or on exertion Cardiovascular: No chest pain, tightness or palpitations Abdomen: No pain, nausea, vomiting, diarrhea or constipation Musculoskeletal: No joint pain, calf pain, swelling Neurologic: + generalized weakness, no numbness/tingling, or balance problems Psychiatric: No anxiety or depression Skin: No rash or itch Principal Diagnosis (1) COVID-19: (2) Acute respiratory failure with hypoxia Discharge Exam General: A&Ox3 HENT: NCAT, MMM, EOMI Eyes: PERRLA Neck: Supple, normal range of motion CVS: normal rate and rhythm Resp: b/l good breath sounds Abdomen: Soft, ND/NT, +BS Extremities: No c/c/e Neuro: face symmetric, strength grossly equal, no focal deficit Skin: warm and dry, no rashes/lesions/errythema MSK: normal ROM, no joint swelling/erythema Discharge Data Allergies Allergy/AdvReac Type Severity Reaction Status Date / Time No Known Allergies Allergy Mild Unverified 12/30/20 10:14 Consultations 12/30/20 11:16 ED Decision to Admit Stat 12/30/20 13:23 Consult Pulmonology Routine Ordered Studies 12/30/20 10:05 CT angio chest PE protocol Stat Hospital Course (1) COVID-19: (2) Acute respiratory failure with hypoxia: -2/2 COVID pneumonia- COVID-19 positive since 12/18 -Remdesivir:not given due to being past 10days of symptoms( today day #14) - dexamethasone x 6 - CRP trending down: 14> 9.36 > 2.61 > 0.7 - pulm consulted: recommended dexa 10mg, BiPAP at night, and I/O: keep the pt in negative balance on the day of discharge, patient was doing OK. He was on room at rest. With ambulation patient was requiring 2L. Patient was discharged on 2L of NC with ambulation. (3) Tachycardia: - resolved - only tachy with ambulation but asymptomatic (4) Elevated transaminase level: - AST back to normal range - ALT trending down - he will need repeat LFTs with PCP appointment. (5) Hyponatremia: - resolved Total Time Total Time Spent Total Time Spent (In Minutes): 25 Discharge Plan Discharge Items Patient Disposition: Home - Self-Care Reason For Visit: COVID PNEUMONIA Discharge Diagnosis: Covid 19 Activity: Resume your previous activity Lifting: None Non-emergency contact: Primary Care Provider Call non-emergency contact if: your symptoms worsen Follow-up/Referrals: Matthew Alston MD [Outside Practitioners] - ( Date & Time 01/11/2021 12:00 PM Provider Matthew Alston MD [facility] PLEASE NOTE THAT THIS IS A TELEMEDICINE APPOINTMENT. PLEASE FOLLOW THE INSTRUCTIONS PROVIDED IN YOUR EMAIL. IF YOU HAVE ANY QUESTIONS REGARDING THIS APPOINTMENT, PLEASE CALL ) Diet: Heart Healthy Addtl Attending Provider Instructions: Continue with decadron 10 mg daily for four more days. You will need to have repeat liver function tests done when you see your primary care physician. Pending Studies at Discharge: No Stand-Alone Forms: My [facility] [place], Smoking Cessation Medications and DC Order Prescriptions: New dexamethasone [Decadron] 4 mg tablet 10 mg PO DAILY 4 Days Qty: 10 RF: 0 Continued pseudoephedrine HCl [Sudafed] 60 mg Tablet 60 mg PO Q6H PRN (Reason: Congestion) RF: 0 Bronkaid Max 25 mg Tablet 25 mg PO UD RF: 0 Discharge Orders: Discharge Order (Routine); Ordered 01/07/21 Ordered By: Cuba Perez Admission Data Admit Date/Time: 12/30/20 11:51 Attending Provider: Cuba Perez Admit Provider: Azra Carreno Primary Care Provider: PCP,NO Other Providers: Apoorva Brewer ; Bj Bajwa
== END 2021-01-07 15:12 | disposition home or self-care (01) | DRG 177 ==
LOC: ED 09:28 → 2E 11:51 → SUATTDRO 11:51 → 2E 12:34
DX: Z68.37 Body mass index [BMI] 37.0-37.9, adult; R74.01 Elevation of levels of liver transaminase levels; E66.01 Morbid (severe) obesity due to excess calories; J96.01 Acute respiratory failure with hypoxia; E87.1 Hypo-osmolality and hyponatremia; U07.1 COVID-19; J12.82 Pneumonia due to coronavirus disease 2019